=== PATIENT | female | born 1990 | race African-American/Black ===

== ENCOUNTER 2016-07-22 12:42 | Emergency (ER) | payer OTHER ==
[2016-07-22] MEDS ORDERED: SODIUM CHLORIDE 0.9% 1,000 ML IV STA (14:09)
--- NOTE | 2016-07-22 14:13 | ED ---
Abdominal Pain HPI - General Chief Complaint: Abdominal Pain Stated Complaint: Abd.pain Time Seen by Provider: 07/22/16 14:00 Source: patient, RN notes reviewed Mode of arrival: ambulatory Limitations: no limitations - History of Present Illness Initial Comments: 25-year-old female presents to the emergency department with a chief complaint of lower abdominal cramping. Patient states that she has had the symptoms for the past week or so. Patient states that she took a home test that was negative. Patient states she is about a week and half late for her.. Patient states she was concerned due to her symptoms so she thought that she should be evaluated. Patient denies any recent fever, chills, shortness of breath, chest pain, back pain, nausea vomiting, numbness or tingling, dysuria or hematuria, constipation or diarrhea, headaches or visual changes, or any other current symptoms. - Related Data Home Medications Medication Instructions Recorded Confirmed amLODIPine [Norvasc] 5 mg PO DAILY 10/21/15 07/22/16 Allergies Allergy/AdvReac Type Severity Reaction Status Date / Time No Known Allergies Allergy Verified 07/22/16 14:34 Review of Systems ROS Statement: Those systems with pertinent positive or pertinent negative responses have been documented in the HPI. ROS Other: All systems not noted in ROS Statement are negative. Past Medical History Past Medical History: No Reported History Additional Past Medical History / Comment(s): legally blind, retinal detachment at , History of Any Multi-Drug Resistant Organisms: None Reported Additional Past Surgical History / Comment(s): retinal sx., eye surgeries Past Psychological History: Anxiety Smoking Status: Current every day smoker Past Alcohol Use History: Occasional Past Drug Use History: None Reported General Exam - General Exam Comments Initial Comments: General: The patient is awake and alert, in no distress, and does not appear acutely ill. Eye: Pupils are equal, round and reactive to light. Ears, nose, mouth and throat: There are moist mucous membranes. Neck: The neck is supple, there is no tenderness. Cardiovascular: There is a regular rate and rhythm. No murmur, rub or gallop is appreciated. Respiratory: Lungs are clear to auscultation, respirations are non-labored, breath sounds are equal. No wheezes, stridor, rales, or rhonchi. Gastrointestinal: Soft, non-distended, mild bilateral lower quadrant tenderness abdomen without masses or organomegaly noted. There is no rebound or guarding present. No CVA tenderness. Bowel sounds are unremarkable. Back: There is no tenderness to palpation in the midline. There is no obvious deformity. No rashes noted. Musculoskeletal: Normal ROM, no tenderness, There is no pedal edema. There is no calf tenderness or swelling. Sensation intact. Pulses equal bilaterally 2+. Neurological: CN II-XII intact, There are no obvious motor or sensory deficits. Coordination appears grossly intact. Speech is normal. Skin: Skin is warm and dry and no rashes or lesions are noted. Psychiatric: Cooperative, appropriate mood & affect, normal judgment. Limitations: no limitations Course Vital Signs 07/22/16 07/22/16 07/22/16 13:01 14:10 15:09 Temperature 97.9 F 97.8 F Pulse Rate 91 68 90 Respiratory 20 16 16 Rate Blood Pressure 199/113 131/78 154/83 O2 Sat by Pulse 100 97 97 Oximetry 07/22/16 15:26 Temperature 97.6 F Pulse Rate 74 Respiratory 16 Rate Blood Pressure 151/78 O2 Sat by Pulse 99 Oximetry Medical Decision Making - Medical Decision Making 25-year-old female presents emergency department with chief complaint of pelvic cramping. At this time patient's level is negative for blood work is otherwise negative. Urine is negative. We discussed patient's pain is most likely due to abnormal menstruation. We did discuss follow-up with [facility] COUNSELOR and return parameters. Patient states that she is told that she'll follow-up with her JUVENILE COUNSELOR for further testing. All questions have been answered. She will be discharged. - Lab Data Result diagrams: 07/22/16 14:50 07/22/16 14:00 Lab Results 07/22/16 07/22/16 07/22/16 Range/Units 14:00 14:00 14:50 WBC 6.9 (3.8-10.6) k/uL RBC 4.37 (3.80-5.40) m/uL Hgb 12.2 (11.4-16.0) gm/dL Hct 36.3 (34.0-46.0) % MCV 83.1 (80.0-100.0) fL MCH 27.9 (25.0-35.0) pg MCHC 33.5 (31.0-37.0) g/dL RDW 13.6 (11.5-15.5) % Plt Count 262 (150-450) k/uL Neutrophils % 44 % Lymphocytes % 46 % Monocytes % 4 % Eosinophils % 3 % Basophils % 1 % Neutrophils # 3.0 (1.3-7.7) k/uL Lymphocytes # 3.1 (1.0-4.8) k/uL Monocytes # 0.3 (0-1.0) k/uL Eosinophils # 0.2 (0-0.7) k/uL Basophils # 0.1 (0-0.2) k/uL Sodium 139 (137-145) mmol/L Potassium 4.5 (3.5-5.1) mmol/L Chloride 107 (98-107) mmol/L Carbon Dioxide 22 (22-30) mmol/L Anion Gap 10 mmol/L BUN 12 (7-17) mg/dL Creatinine 0.90 (0.52-1.04) mg/dL Est GFR (MDRD) Af Amer >60 (>60 ml/min/1.73 sqM) Est GFR (MDRD) Non-Af >60 (>60 ml/min/1.73 sqM) Glucose 92 (74-99) mg/dL Calcium 9.0 (8.4-10.2) mg/dL Total Bilirubin 1.0 (0.2-1.3) mg/dL AST 37 H (14-36) U/L ALT 22 (9-52) U/L Alkaline Phosphatase 84 (38-126) U/L Total Protein 8.7 H (6.3-8.2) g/dL Albumin 4.6 (3.5-5.0) g/dL HCG, Quant <2.4 mIU/mL Urine Color Light Yellow Urine Appearance Clear (Clear) Urine pH 7.5 (5.0-8.0) Ur Specific [place] 1.014 (1.001-1.035) Urine Protein Negative (Negative) Urine Glucose (UA) Negative (Negative) Urine Ketones Negative (Negative) Urine Blood Negative (Negative) Urine Nitrite Negative (Negative) Urine Bilirubin Negative (Negative) Urine Urobilinogen <2.0 (<2.0) mg/dL Ur Leukocyte Esterase Negative (Negative) Disposition Clinical Impression: Pelvic cramping Disposition: HOME SELF-CARE Condition: Stable Instructions: Dysmenorrhea (ED) Additional Instructions: Please use medication as discussed. Please follow up with family doctor if symptoms have not improved over the next two days. Please return to the emergency room if your symptoms increase or worsen or for any other concerns. Referrals: Gasper Swan MD [Primary Care Provider] - 1-2 days Time of Disposition: 15:29
[2016-07-22 14:14] VITALS: RESP 16
[2016-07-22 14:37] LABS: ALT 22 U/L (9-52); AST 37 U/L (14-36); Alkaline Phosphatase 84 U/L (38-126); Anion Gap 10 mmol/L; Blood Urea Nitrogen 12 mg/dL (7-17); Carbon Dioxide 22 mmol/L (22-30); Chloride 107 mmol/L (98-107); Glucose 92 mg/dL (74-99); Non-African American GFR(MDRD) >60 (>60 ml/min/1.73 sqM); Potassium 4.5 mmol/L (3.5-5.1); Sodium 139 mmol/L (137-145); Total Protein 8.7 g/dL (6.3-8.2)
[2016-07-22 14:39] LABS: Appearance,Urine Clear (Clear); Bilirubin,Urine Negative (Negative); Glucose,Urine (UA) Negative (Negative); Ketones,Urine Negative (Negative); Leukocyte Esterase,Urine Negative (Negative); Nitrite,Urine Negative (Negative); PH, Urine 7.5 (5.0-8.0); Protein,Urine Negative (Negative); Specific Gravity,Urine 1.014 (1.001-1.035); UA Billing (MACRO vs. MICRO) CHEM; Urobilinogen,Urine <2.0 mg/dL (<2.0)
[2016-07-22 14:53] LABS: HCG,Quantitative Serum <2.4 mIU/mL
[2016-07-22 15:12] LABS: Basophils # (A) 0.1 k/uL (0-0.2); Basophils % (A) 1 %; CH 27.2; CHCM 32.9; Eosinophils # (A) 0.2 k/uL (0-0.7); Eosinophils % (A) 3 %; HCT 36.3 % (34.0-46.0); HGB 12.2 gm/dL (11.4-16.0); Luc # (Auto) 0.17; Luc % (Auto) 2; Lymphocytes # (A) 3.1 k/uL (1.0-4.8); Lymphocytes % (A) 46 %; MCH 27.9 pg (25.0-35.0); MCHC 33.5 g/dL (31.0-37.0); MCV 83.1 fL (80.0-100.0); Mean Platelet Volume 7.7; Monocytes # (A) 0.3 k/uL (0-1.0); Monocytes % (A) 4 %; Neutrophils % (A) 44 %; RBC 4.37 m/uL (3.80-5.40); RDW 13.6 % (11.5-15.5); WBC 6.9 k/uL (3.8-10.6); WBC (Perox) 6.88
[2016-07-22 15:27] VITALS: BP 151/78; PULSE 74; TEMP 97.6
== END 2016-07-22 15:39 | disposition home or self-care (01) ==
LOC: EC 12:42
DX: R10.2 Pelvic and perineal pain (principal); Z32.02 Encounter for pregnancy test, result negative; F17.200 Nicotine dependence, unspecified, uncomplicated; Z79.899 Other long term (current) drug therapy
CPT/HCPCS: 36415; 80053; 81003; 84702; 85025; 96360; 99284

== ENCOUNTER 2016-12-06 20:59 | Emergency (ER) | payer OTHER ==
[2016-12-06 21:31] VITALS: RESP 18
--- NOTE | 2016-12-06 22:11 | ED ---
Female Urogenital HPI - General Chief complaint: Urogenital Stated complaint: poss UTI Time Seen by Provider: 12/06/16 22:01 Source: patient, RN notes reviewed, old records reviewed Mode of arrival: ambulatory Limitations: no limitations - History of Present Illness Initial comments: This is a 25-year-old female chief complaint of 2 days of dysuria and polyuria. Patient ports last menstrual cycle was on Wednesday. Patient states that she has had no fever or chills. She reports that every time she urinates is very painful. Patient denies any back pain or abdominal pain. She reports that she is not concern for sexually transmitted infections. She reports that she's had a slight increase of vaginal discharge. Patient denies any recent fever, chills, shortness of breath, chest pain, back pain, abdominal pain, nausea vomiting, numbness or tingling, dysuria or hematuria, constipation or diarrhea, headaches or visual changes, or any other current symptoms - Related Data Home Medications Medication Instructions Recorded Confirmed amLODIPine [Norvasc] 5 mg PO DAILY 10/21/15 12/06/16 Dorzolamide HCl [Trusopt 2%] 1 drop BOTH EYES 12/06/16 Allergies Allergy/AdvReac Type Severity Reaction Status Date / Time No Known Allergies Allergy Verified 07/22/16 14:34 Review of Systems ROS Statement: Those systems with pertinent positive or pertinent negative responses have been documented in the HPI. ROS Other: All systems not noted in ROS Statement are negative. Past Medical History Past Medical History: Hypertension Additional Past Medical History / Comment(s): legally blind, retinal detachment at , History of Any Multi-Drug Resistant Organisms: None Reported Additional Past Surgical History / Comment(s): retinal sx., eye surgeries Past Psychological History: Anxiety Smoking Status: Current some day smoker Past Alcohol Use History: Occasional Past Drug Use History: None Reported General Exam - General Exam Comments Initial Comments: 25-year-old female. No acute distress. Limitations: no limitations General appearance: alert, in no apparent distress Head exam: Present: atraumatic, normocephalic, normal inspection Eye exam: Present: normal appearance, PERRL, EOMI, other (Right eye has history of surgery.). Absent: scleral icterus, conjunctival injection, periorbital swelling ENT exam: Present: normal exam, mucous membranes moist Neck exam: Present: normal inspection. Absent: tenderness, meningismus, lymphadenopathy Respiratory exam: Present: normal lung sounds bilaterally. Absent: respiratory distress, wheezes, rales, rhonchi, stridor Cardiovascular Exam: Present: regular rate, normal rhythm, normal heart sounds. Absent: systolic murmur, diastolic murmur, rubs, gallop, clicks GI/Abdominal exam: Present: soft, normal bowel sounds. Absent: distended, tenderness, guarding, rebound, rigid External exam: Present: normal external exam Speculum exam: Present: vaginal discharge (significant vaginal discharge). Absent: normal speculum exam, cervical discharge, vaginal bleeding, foreign body Extremities exam: Present: normal inspection, full ROM, normal capillary refill. Absent: tenderness, pedal edema, joint swelling, calf tenderness Back exam: Present: normal inspection Neurological exam: Present: alert, oriented X3, CN II-XII intact Psychiatric exam: Present: normal affect, normal mood Skin exam: Present: warm, dry, intact, normal color. Absent: rash Course Vital Signs 12/06/16 21:28 Temperature 99.3 F Pulse Rate 94 Respiratory 18 Rate Blood Pressure 220/117 O2 Sat by Pulse 100 Oximetry Medical Decision Making - Medical Decision Making 25-year-old female presents emergency Department chief complaint of dysuria for the past few days. She recently got over her menstrual cycle at the end of this week. Patient reports it's burning whenever she urinates. Patient urinalysis was performed, little signs of infection. Pelvic exam completed she does have significant amount of discharge. Patient be treated for chlamydia and gonorrhea with Rocephin and azithromycin. Trichomonas test currently pending. Trichomonas test is negative. Patient advised to follow with the health department and discussed that we will call her in 2 days if any of her cultures are positive. Patient advised to avoid intercourse for the next 2 weeks. Patient agrees treatment plan will comply. Return parameters were discussed. - Lab Data Lab Results 12/06/16 12/06/16 12/06/16 Range/Units 22:16 22:16 23:15 Urine Color Yellow Urine Appearance Clear (Clear) Urine pH 5.5 (5.0-8.0) Ur Specific [place] 1.015 (1.001-1.035) Urine Protein Trace H (Negative) Urine Glucose (UA) Negative (Negative) Urine Ketones Negative (Negative) Urine Blood Negative (Negative) Urine Nitrite Negative (Negative) Urine Bilirubin Negative (Negative) Urine Urobilinogen <2.0 (<2.0) mg/dL Ur Leukocyte Esterase Trace H (Negative) Urine RBC 1 (0-5) /hpf Urine WBC 3 (0-5) /hpf Ur Squamous Epith Cells <1 (0-4) /hpf Urine Mucus Rare H (None) /hpf Urine HCG, Qual Not Detected (Not Detectd) Trichomonas Ag (Rapid) Negative (Negative) Disposition Clinical Impression: Vaginal discharge Disposition: HOME SELF-CARE Condition: Good Instructions: Vaginal Discharge (ED), Sexually Transmitted Diseases (ED) Additional Instructions: Patient advised to follow-up with primary care provider in health department. He'll be called in 2 days if he results are positive. Return to the emergency department if any alarming signs or symptoms occur. Referrals: Gasper Swan MD [Primary Care Provider] - 1-2 days Time of Disposition: 23:37
[2016-12-06 22:31] LABS: Appearance,Urine Clear (Clear); Bilirubin,Urine Negative (Negative); Glucose,Urine (UA) Negative (Negative); Ketones,Urine Negative (Negative); Leukocyte Esterase,Urine Trace (Negative); Mucus,Urine Rare /hpf; Nitrite,Urine Negative (Negative); PH, Urine 5.5 (5.0-8.0); Particle Count 2883; Protein,Urine Trace (Negative); RBC,Urine 1 /hpf (0-5); Specific Gravity,Urine 1.015 (1.001-1.035); Squamous Epithelial Cell,Urine <1 /hpf (0-4); UA Billing (MACRO vs. MICRO) MICRO; Urobilinogen,Urine <2.0 mg/dL (<2.0); WBC,Urine 3 /hpf (0-5)
[2016-12-06] MEDS ORDERED: cefTRIAXone 250 MG VIAL IM STA (23:14)
[2016-12-06] MEDS ORDERED: AZITHROMYCIN 500 MG TAB PO STA (23:15)
[2016-12-06] MEDS ORDERED: cloNIDine HCL 0.2 MG TAB PO STA (23:35)
[2016-12-07 00:11] VITALS: BP 190/121; PULSE 90; TEMP 98.7
== END 2016-12-07 00:10 | disposition home or self-care (01) ==
LOC: EC 20:59
DX: N89.8 Other specified noninflammatory disorders of vagina (principal); R30.0 Dysuria; R35.8 Other polyuria; I10 Essential (primary) hypertension; F17.200 Nicotine dependence, unspecified, uncomplicated; Z79.899 Other long term (current) drug therapy
CPT/HCPCS: 99284 ×2; 96372 ×2; 87591; 87491; 81001; 81025; 87808; 87070; 87086; J0696; 87205

== ENCOUNTER 2017-06-26 15:29 | Emergency (ER) | payer MEDICARE, OTHER ==
[2017-06-26 15:48] VITALS: BP 168/82; PULSE 103; RESP 20; TEMP 100
--- NOTE | 2017-06-26 16:21 | XR ---
EXAMINATION TYPE: XR wrist complete 4 views RT, XR hand complete 3 views RT DATE OF EXAM: 06/26/2017 COMPARISON: NONE HISTORY: 26-year-old female with dominant radial sided wrist pain FINDINGS: Right wrist: Mild soft tissue swelling about the wrist. No acute fracture, subluxation, or dislocation is seen. Me tacarpal compartment appears intact. Right hand: Metallic density nail art is present. Mild soft tissue swelling. No acute fracture, subluxation, or dislocation seen IMPRESSION: Right wrist and hand without acute osseous abnormality seen. Mild soft tissue swelling is noted.
--- NOTE | 2017-06-26 16:37 | ED ---
General Adult HPI - General Chief complaint: Extremity Injury, Upper Stated complaint: Arm pain Time Seen by Provider: 06/26/17 15:58 Source: patient, RN notes reviewed Mode of arrival: ambulatory Limitations: no limitations - History of Present Illness Initial comments: 26-year-old female presents to the emergency department for a chief complaint of right hand and wrist pain x 2 weeks. Patient denies any injuries. 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 She states she has also been typing and writing a lot because of the end of the term. She is right handed. Patient is concerned for a "hairline fracture." Patient states she has pain in her the right hand only in the first three digits. Patient states she was seen at [facility] and diagnosed with tendinitis. Patient has been wearing a cockup splint and using Motrin for the past few days. She has not been doing this consistently. Patient would like x- rays to make sure she does not have a hairline fracture. Patient has no other complaints at this time. Patient denies any shortness of breath, chest pain, headaches, abdominal pain, cough, sore throat, congestion, ear pain, urinary symptoms, nausea or vomiting. - Related Data Home Medications Medication Instructions Recorded Confirmed amLODIPine [Norvasc] 5 mg PO DAILY 10/21/15 12/06/16 Dorzolamide HCl [Trusopt 2%] 1 drop BOTH EYES 12/06/16 Previous Rx's Medication Instructions Recorded Ibuprofen [Motrin] 600 mg PO Q8HR PRN #20 tab 06/26/17 Allergies Allergy/AdvReac Type Severity Reaction Status Date / Time No Known Allergies Allergy Verified 06/26/17 15:44 Review of Systems ROS Statement: Those systems with pertinent positive or pertinent negative responses have been documented in the HPI. ROS Other: All systems not noted in ROS Statement are negative. Past Medical History Past Medical History: Hypertension Additional Past Medical History / Comment(s): legally blind, retinal detachment at , History of Any Multi-Drug Resistant Organisms: None Reported Additional Past Surgical History / Comment(s): retinal sx., eye surgeries Past Psychological History: Anxiety Smoking Status: Current some day smoker Past Alcohol Use History: Occasional Past Drug Use History: None Reported General Exam Limitations: no limitations General appearance: alert, in no apparent distress Neck exam: Present: normal inspection, full ROM. Absent: tenderness, meningismus, lymphadenopathy Respiratory exam: Present: normal lung sounds bilaterally. Absent: respiratory distress, wheezes, rales, rhonchi, stridor Cardiovascular Exam: Present: regular rate, normal rhythm, normal heart sounds. Absent: systolic murmur, diastolic murmur, rubs, gallop, clicks Extremities exam: Present: full ROM (Full range of motion of the right hand wrist and digits. No pain with passive extension of the fingers.), tenderness ( Mild tenderness to the dorsal and ventral right wrist as well as the dorsal and ventral first three digits. No tenderness to the scaphoid area.), normal capillary refill (Refill less than 2 seconds in RUE. Radial pulse 2+ in RUE.), other (Negative Lou test. No redness or swelling of the right hand. No signs of infection or abscesses noted on the right hand. No [place] signs. No fingers held in flexion in the right hand. No tenderness to palpation of the flexor tendons. Positive Phalen test, Negative lou.). Absent: joint swelling (No swelling of the wrist.) Course Vital Signs 06/26/17 15:44 Temperature 100 F H Pulse Rate 103 H Respiratory 20 Rate Blood Pressure 168/82 O2 Sat by Pulse 100 Oximetry Medical Decision Making - Medical Decision Making 26-year-old female presents to the emergency department for a chief complaint of right wrist and hand pain 1.5 weeks. 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 Patient was seen at [facility] about 1 week ago and was diagnosed with tendinitis. X-rays were not obtained at that time and patient was concerned for hairline fracture. Patient complains of pain only in the first 3 digits of the right hand. Vitals show a low-grade temperature of 100.0, pulse 103, respirations 20, blood pressure 168/82, pulse ox 100. Patient states she had a cold for the past couple days that has been improving which is likely the cause of her low-grade temp. On exam patient has mild tenderness in the first 3 metacarpals of the right hand and mild pain with ROM. No scaphoid tenderness. No redness or swelling noted. No abscesses or signs of infection noted. the right hand is not warmer than the other. No pain with extension of the fingers, no fingers held in flexion, no tenderness of flexor tendons. Neurovascular intact with full range of motion. Positive Phalen test. Right wrist and hand x-rays show no acute osseous abnormality. Patient likely has carpal tunnel and overuse syndrome of the right hand as she is a student in [employer] and been using her right hand often to type and write. Patient already has a cock up splint from [employer]. She is to use that at night. She is to take Motrin 3 times a day for inflammation. Patient was educated that she is to follow up with orthopedics in one to 2 days. Contact info was given. Patient is aware she is also to follow up with her primary care provider in 1-2 days as well. She is aware she must return to the emergency Department if she has any worsening symptoms. Disposition Clinical Impression: Carpal tunnel syndrome of right wrist, Overuse syndrome of right hand Disposition: HOME SELF-CARE Condition: Good Instructions: Paresthesia (ED) Additional Instructions: Please use splint nightly. Please take Motrin for pain. Follow up with primary care provider or orthopedics in one to two days. Return to the emergency department if you have any worsening symptoms. Prescriptions: Ibuprofen [Motrin] 600 mg PO Q8HR PRN #20 tab PRN Reason: Pain Is patient prescribed a controlled substance at d/c from ED?: No Referrals: Gasper Swan MD [Primary Care Provider] - 1-2 days Kyleigh Watt DO [Doctor of Osteopathic Medicine] - 1-2 days Time of Disposition: 16:39
== END 2017-06-26 16:44 | disposition home or self-care (01) ==
LOC: EC 15:29
DX: G56.01 Carpal tunnel syndrome, right upper limb (principal); M70.841 Other soft tissue disorders related to use, overuse and pressure, right hand; H54.8 Legal blindness, as defined in USA; I10 Essential (primary) hypertension; F17.200 Nicotine dependence, unspecified, uncomplicated; Z79.899 Other long term (current) drug therapy; Y93.89 Activity, other specified
CPT/HCPCS: 99283

== ENCOUNTER 2018-06-04 13:36 | Emergency (ER) | payer MEDICARE, OTHER ==
[2018-06-04 13:43] VITALS: RESP 18
--- NOTE | 2018-06-04 14:25 | ED ---
General Adult HPI - General Chief complaint: Recheck/Abnormal Lab/Rx Stated complaint: Absent Period Time Seen by Provider: 06/04/18 13:49 Source: patient, RN notes reviewed Mode of arrival: ambulatory Limitations: no limitations - History of Present Illness Initial comments: 27-year-old female presents emergency Department chief complaint of leg menstr ual cycle. Patient states she's been waking up with abdominal cramping. Patient states that she is over 2 weeks late. She did take a test which she believes was negative. She has no vaginal pain or vaginal discharge. Patient did she is always regular up to this point no control. Patient has had thyroid checked in the past. Patient does admit that she's had increased stress which may be contrary returning to her symptoms. Patient denies fever, chills, change in bowel habits. Patient does take amlodipine for hypertension. - Related Data Home Medications Medication Instructions Recorded Confirmed amLODIPine [Norvasc] 5 mg PO DAILY 10/21/15 12/06/16 Dorzolamide HCl [Trusopt 2%] 1 drop BOTH EYES 12/06/16 Previous Rx's Medication Instructions Recorded Ibuprofen [Motrin] 600 mg PO Q8HR PRN #20 tab 06/26/17 Allergies Allergy/AdvReac Type Severity Reaction Status Date / Time No Known Allergies Allergy Verified 06/04/18 13:43 Review of Systems ROS Statement: Those systems with pertinent positive or pertinent negative responses have been documented in the HPI. ROS Other: All systems not noted in ROS Statement are negative. Past Medical History Past Medical History: Hypertension Additional Past Medical History / Comment(s): legally blind, retinal detachment at , History of Any Multi-Drug Resistant Organisms: None Reported Additional Past Surgical History / Comment(s): retinal sx., eye surgeries Past Psychological History: Anxiety Smoking Status: Current some day smoker Past Alcohol Use History: Occasional Past Drug Use History: None Reported General Exam Limitations: no limitations General appearance: alert, in no apparent distress Head exam: Present: atraumatic, normocephalic, normal inspection Respiratory exam: Present: normal lung sounds bilaterally. Absent: respiratory distress, wheezes, rales, rhonchi, stridor Cardiovascular Exam: Present: regular rate, normal rhythm, normal heart sounds. Absent: systolic murmur, diastolic murmur, rubs, gallop, clicks GI/Abdominal exam: Present: soft, normal bowel sounds. Absent: distended, tenderness, guarding, rebound, rigid Back exam: Absent: CVA tenderness (R), CVA tenderness (L) Neurological exam: Present: alert, oriented X3, CN II-XII intact Skin exam: Present: warm, dry, intact, normal color. Absent: rash Course Vital Signs 06/04/18 13:41 Temperature 99.0 F Pulse Rate 90 Respiratory 18 Rate Blood Pressure 146/90 O2 Sat by Pulse 100 Oximetry Medical Decision Making - Medical Decision Making 27 female presented emergency Department for missed menstrual cycle. HCG is negative. Ultrasound shows hemorrhagic cyst on the right. Otherwise no acute findings. Patient will follow-up with primary care physician, DIVISION ORDER ANALYST. Return parameters were discussed. - Lab Data Lab Results 06/04/18 06/04/18 Range/Units 14:05 14:05 Urine Color Yellow Urine Appearance Clear (Clear) Urine pH 6.5 (5.0-8.0) Ur Specific [place] 1.014 (1.001-1.035) Urine Protein Negative (Negative) Urine Glucose (UA) Negative (Negative) Urine Ketones Negative (Negative) Urine Blood Negative (Negative) Urine Nitrite Negative (Negative) Urine Bilirubin Negative (Negative) Urine Urobilinogen <2.0 (<2.0) mg/dL Ur Leukocyte Esterase Negative (Negative) Urine HCG, Qual Not Detected (Not Detectd) Disposition Clinical Impression: Irregular menstrual cycle Disposition: HOME SELF-CARE Condition: Stable Instructions (If sedation given, give patient instructions): Dysfunctional Uterine Bleeding (ED) Additional Instructions: Please return to the Emergency Department if symptoms worsen or any other concerns. Is patient prescribed a controlled substance at d/c from ED?: No Referrals: Gasper Swan MD [Primary Care Provider] - 1-2 days Time of Disposition: 14:53
[2018-06-04 14:44] LABS: Appearance,Urine Clear (Clear); Bilirubin,Urine Negative (Negative); Blood,Urine Negative (Negative); Color,Urine Yellow; Glucose,Urine (UA) Negative (Negative); Ketones,Urine Negative (Negative); Leukocyte Esterase,Urine Negative (Negative); Nitrite,Urine Negative (Negative); PH, Urine 6.5 (5.0-8.0); Protein,Urine Negative (Negative); Specific Gravity,Urine 1.014 (1.001-1.035); Urobilinogen,Urine <2.0 mg/dL (<2.0)
--- NOTE | 2018-06-04 14:45 | US ---
EXAMINATION TYPE: US transvaginal DATE OF EXAM: 06/04/2018 COMPARISON: US CLINICAL HISTORY: Pain. Pt states late menses, pt states negative home tests TECHNIQUE: Transvaginal (TV). Transvaginal sonographic images of the pelvis were acquired. Date of LMP: 04/12/2018 EXAM MEASUREMENTS: Uterus: 7.8 x 4.3 x 4.5 cm Endometrial Stripe: 0.9 cm Right Ovary: 4.6 x 3.0 x 2.3 cm Left Ovary: 3.5 x 2.4 x 3.0 cm 1. Uterus: Anteverted wnl 2. Endometrium: wnl 3. Right Ovary: Possible hemorrhagic cyst= 2.2 x 2.4 x 1.8 cm 4. Left Ovary: wnl, dominant follicle= 1.5 cm Spectral, color and waveform doppler imaging shows good arterial and venous flow within the ovaries ; there is no evidence for ovarian torsion. 5. Bilateral Adnexa: wnl 6. Posterior cul-de-sac: Small amount of free fluid IMPRESSION: 1. Complex cyst right ovary. Follow-up is recommended. Hemorrhagic cyst is within the differential. 2. More simple appearing left ovarian cyst measuring 1.5 cm. 3. Small amount of free fluid is within the pelvis. This may be slightly greater than expected for ph ysiologic fluid
[2018-06-04 15:04] VITALS: BP 138/87; PULSE 87; TEMP 98
[2018-06-06 14:55] LABS: N. gonorrhoeae,PCR Negative (Neg,Equiv); Neisseria Source Urine
[2018-06-06 14:58] LABS: C. trachomatis,PCR Negative (Neg,Equiv); Chlamydia trachomatis Source Urine
== END 2018-06-04 15:01 | disposition home or self-care (01) ==
LOC: EC 13:36
DX: N92.6 Irregular menstruation, unspecified (principal); I10 Essential (primary) hypertension; F17.200 Nicotine dependence, unspecified, uncomplicated; Z32.02 Encounter for pregnancy test, result negative
CPT/HCPCS: 76830; 81003; 81025; 87491; 87591; 93975; 99283

== ENCOUNTER → 2018-07-18 | Outpatient (CLI) | payer MEDICARE, OTHER ==
--- NOTE | 2018-07-19 07:40 | US ---
EXAMINATION TYPE: US transvaginal DATE OF EXAM: 07/18/2018 COMPARISON: US CLINICAL HISTORY: N83.201 Unspecified ovarian cyst, right side. TECHNIQUE: Transvaginal (TV). Date of LMP: 07/11/2018 EXAM MEASUREMENTS: Uterus: 7.4 x 4.0 x 4.6 cm Endometrial Stripe: 0.5 cm Right Ovary: 3.7 x 2.5 x 2.7 cm Left Ovary: 3.1 x 3.7 x 1.8 cm 1. Uterus: Anteverted wnl 2. Endometrium: wnl 3. Right Ovary: wnl 4. Left Ovary: wnl 5. Bilateral Adnexa: wnl 6. Posterior cul-de-sac: Trace amount of free fluid adjacent to left ovary. IMPRESSION: The previously seen complex ovarian cyst on the right has resolved in the interim and the refore is likely related to an involuting hemorrhagic cyst. Physiologic follicles are seen bilaterall y with a trace amount of free fluid, likely physiologic as well.
== END | disposition home or self-care (01) ==
LOC: RADUSWWP 16:08
PROVIDERS: ATTEND Obstetrics & Gynecology
DX: N83.201 Unspecified ovarian cyst, right side (principal)
CPT/HCPCS: 76830

== ENCOUNTER → 2020-09-04 | Outpatient (CLI) | payer MEDICARE, OTHER | END | disposition home or self-care (01) | CPT/HCPCS: 99203 ==

== ENCOUNTER 2020-11-11 13:35 | Emergency (ER) | payer MEDICARE, OTHER ==
[2020-11-11 13:43] VITALS: PULSE 94; RESP 18; TEMP 97.9
--- NOTE | 2020-11-11 15:32 | ED ---
ENT HPI - General Chief complaint: ENT Stated complaint: L ear pain Time Seen by Provider: 11/11/20 14:56 Source: patient, family Mode of arrival: ambulatory Limitations: no limitations - History of Present Illness Initial comments: Patient is a 29-year-old female presenting to emergency Department with complaints of fluid in her left ear. She states her sister washed her hair yesterday and believes she got some water in her left ear. She states is very irritating feeling she is also denying with a sinus infection and states that she is making matters worse. She denies any dizziness or lightheadedness, no headache, no fevers or chills. She has no further complaints. - Related Data Home Medications Medication Instructions Recorded Confirmed amLODIPine [Norvasc] 5 mg PO DAILY 10/21/15 09/04/20 Dorzolamide HCl [Trusopt 2%] 1 drop BOTH EYES TID 12/06/16 09/04/20 Acetaminophen [Tylenol Extra 500 mg PO Q6H PRN 09/04/20 09/04/20 Strength] Allergies Allergy/AdvReac Type Severity Reaction Status Date / Time No Known Allergies Allergy Verified 11/11/20 13:40 Review of Systems ROS Statement: Those systems with pertinent positive or pertinent negative responses have been documented in the HPI. ROS Other: All systems not noted in ROS Statement are negative. Past Medical History Past Medical History: Hypertension Additional Past Medical History / Comment(s): legally blind, retinal detachment at 15 years old. History of Any Multi-Drug Resistant Organisms: None Reported Additional Past Surgical History / Comment(s): retinal sx., eye surgeries. cataract sx left eye 05/06/2020. Past Anesthesia/Blood Transfusion Reactions: No Reported Reaction Past Psychological History: Anxiety Smoking Status: Former smoker Past Alcohol Use History: Occasional Past Drug Use History: None Reported General Exam - General Exam Comments Initial Comments: GENERAL: Patient is well-developed and well-nourished. Patient is nontoxic and in no acute distress. HEAD: Atraumatic, normocephalic. EYES: Pupils equal round and reactive to light, extraocular movements intact, sclera anicteric, conjunctiva are normal. Eyelids were unremarkable. ENT: Right TM is within normal limits, left TM has a cerumen impaction, after impact ion was cleared, TM looks normal, no signs of infection., nares patent, oropharynx clear without exudates. Moist mucous membranes. NECK: Normal range of motion, supple without lymphadenopathy or JVD. LUNGS: Unlabored respirations. Breath sounds clear to auscultation bilaterally and equal. No wheezes rales or rhonchi. HEART: Regular rate and rhythm without murmurs, rubs or gallops. MUSCULOSKELETAL: Normal extremities with adequate strength and normal range of motion, no pitting or edema. No clubbing or cyanosis. NEUROLOGICAL: Patient is alert and oriented x 3. SKIN: Warm, Dry, normal turgor, no rashes or lesions noted. Limitations: no limitations Course Vital Signs 11/11/20 11/11/20 13:40 14:48 Temperature 97.9 F Pulse Rate 94 Respiratory 18 Rate Blood Pressure 190/135 224/113 O2 Sat by Pulse 98 Oximetry Medical Decision Making - Medical Decision Making Patient is a 29-year-old female here with fluid in her left ear. On exam, she had a small cerumen impaction, after ear was cleaned, TM is intact, no other acute findings. Patient's ear was irrigated by the nurse, she reports cerumen removal, patient feels improvement. She is stable for discharge. She'll follow up with family doctor as needed. Case discussed with Dr. Caldwell. Disposition Clinical Impression: Left ear impacted cerumen Disposition: HOME SELF-CARE Condition: Stable Instructions (If sedation given, give patient instructions): Cerumen Impaction (ED) Additional Instructions: Please return to the Emergency Department if symptoms worsen or any other concerns. Do not use Q-tips in the ears. Is patient prescribed a controlled substance at d/c from ED?: No Referrals: Gasper Swan MD [Primary Care Provider] - 1-2 days Time of Disposition: 15:32
[2020-11-11 15:40] VITALS: BP 198/98
== END 2020-11-11 15:40 | disposition home or self-care (01) ==
LOC: EC 13:35
DX: H61.22 Impacted cerumen, left ear (principal); I10 Essential (primary) hypertension; Z87.891 Personal history of nicotine dependence; Z79.899 Other long term (current) drug therapy
CPT/HCPCS: 99282

== ENCOUNTER → 2020-11-11 | Outpatient (CLI) | payer MEDICARE, OTHER ==
[2020-11-11 10:27] LABS: Partial Thromboplastin Time 24.3 sec (22.0-30.0); Prothrombin Time 10.4 sec (9.0-12.0)
[2020-11-11 15:15] LABS: HCT 37.5 % (37.2-46.3); HGB 11.5 g/dL (12.0-15.0); MCH 24.6 pg (27.0-32.0); MCHC 30.7 g/dL (32.0-37.0); MCV 80.3 fL (80.0-97.0); Mean Platelet Volume 11.3 fL (9.5-12.2); Platelet Count 310 X 10*3/uL (140-440); RBC 4.67 X 10*6/uL (4.10-5.20); RDW 14.7 % (11.5-14.5); WBC 6.64 X 10*3/uL (4.50-10.00)
[2020-11-11 17:04] LABS: African American GFR (CKD) 79.7 (60.0-200.0); Albumin 4.5 g/dL (3.80-4.90); Albumin/Globulin Ratio 1.32 (1.60-3.17); Anion Gap 9.3 mmol/L (4.00-12.00); BUN/Creat Ratio 9.09 Ratio (12.00-20.00); Calcium 9.3 mg/dL (8.7-10.3); Carbon Dioxide 27.7 mmol/L (21.6-31.8); Globulin 3.4 g/dL (1.6-3.3); Non-African American GFR(CKD) 68.8 (60.0-200.0); Phosphorus 3.9 mg/dL (2.4-5.1); Total Bilirubin 0.2 mg/dL (0.3-1.2); Total Protein 7.9 g/dL (6.2-8.2)
[2020-11-11 17:05] LABS: % Iron Saturation 7.83 (12.00-45.00); Chol/HDL Ratio 4.25; Magnesium 1.9 mg/dL (1.5-2.4)
[2020-11-11 17:15] LABS: Folate, Serum 8.9 ng/mL
[2020-11-11 18:09] LABS: Ferritin 12.6 ng/mL (10.0-291.0)
[2020-11-11 18:22] LABS: Hemoglobin A1C 6.3 % (4.0-6.0)
[2020-11-12 13:45] LABS: Zinc, Serum 70 ug/dL (60-130)
[2020-11-13 06:02] LABS: Vit B1(Thiamine) 39 ug/L (38-122)
[2020-11-13 06:13] LABS: Vitamin A 37 ug/dL (38-106)
[2020-11-13 16:36] LABS: Anabasine Urine <2.0 ng/mL (<2.0)
== END | disposition home or self-care (01) ==
LOC: LABWHC1 09:01
PROVIDERS: ATTEND Surgery Plastic and Reconstructive Surgery
DX: E89.1 Postprocedural hypoinsulinemia (principal); D50.8 Other iron deficiency anemias; E44.0 Moderate protein-calorie malnutrition; E55.9 Vitamin D deficiency, unspecified; K74.1 Hepatic sclerosis; N19 Unspecified kidney failure; K50.90 Crohn's disease, unspecified, without complications
CPT/HCPCS: 84255; 84134; 84425; 80061; 80053; 82607; 82728; 82525; 82746; 83540; 83550; 83735; 84100; 84443; 84590; 84630; 85027; 85610; 85730; 82306; 83970; 83036; 80307; 93005; 36415; G0482; 80323

== ENCOUNTER 2021-01-06 08:07 | Day surgery (SDC) | payer MEDICARE, OTHER ==
[2021-01-01 13:55] VITALS: BMI 54.9
[~2021-01-06 08:07] MED LIST: LACTATED RINGERS 1,000 ML IV SCH
[2021-01-06 08:56] VITALS: TEMP 98.4
--- NOTE | 2021-01-06 09:08 | P.GSHP ---
History of Present Illness H&P Date: 01/06/21 CHIEF COMPLAINT: GERD HISTORY OF PRESENT ILLNESS: The patient is a 30-year-old female who presents reports gastroesophageal reflux disease. Upper endoscopy was offered for further evaluation and management. PAST MEDICAL HISTORY: Please see list. PAST SURGICAL HISTORY: Please see list. MEDICATIONS: Please see list. ALLERGIES: Please see list. SOCIAL HISTORY: No illicit drug use FAMILY HISTORY: No reports of Crohn disease or ulcerative colitis. REVIEW OF ORGAN SYSTEMS: CONSTITUTIONAL: No reports of fevers or chills. GI: Denies any blood in stools or constipation. PHYSICAL EXAM: VITAL SIGNS: Stable GENERAL: Well-developed and pleasant in no acute distress. HEENT: No scleral icterus. Extraocular movements grossly intact. Moist buccal mucosa. NECK: Supple without lymphadenopathy. CHEST: Unlabored respirations. Equal bilateral excursions. CARDIOVASCULAR: Regular rate and rhythm. Distal 2+ pulses. ABDOMEN: Soft, nondistended. MUSCULOSKELETAL: No clubbing, cyanosis, or edema. ASSESSMENT: 1. Gastroesophageal reflux disease PLAN: 1. Recommend proceeding with an upper endoscopy Past Medical History Past Medical History: Blood Disorder, Hypertension Additional Past Medical History / Comment(s): legally blind, retinal detachment at 15 years old. ANEMIA History of Any Multi-Drug Resistant Organisms: None Reported Additional Past Surgical History / Comment(s): retinal sx., eye surgeries. cataract sx left eye 05/06/2020. Past Anesthesia/Blood Transfusion Reactions: No Reported Reaction Smoking Status: Former smoker Medications and Allergies Home Medications Medication Instructions Recorded Confirmed Type amLODIPine [Norvasc] 5 mg PO DAILY 10/21/15 01/06/21 History Dorzolamide HCl [Trusopt 2%] 1 drop BOTH EYES DAILY 12/06/16 01/06/21 History Acetaminophen [Tylenol Extra 500 mg PO Q6H PRN 09/04/20 01/06/21 History Strength] Calcium Citrate 1,500 mg PO DAILY 11/13/20 01/06/21 History Ergocalciferol [Vitamin D2 (1250 50,000 unit PO WEEKLY 11/13/20 01/06/21 History Mcg = 82151 Iu)] Vitamin A [Vitamin A (8,000 Units 10,000 unit PO DAILY 11/13/20 01/06/21 History = 2,400 MCG)] Allergies Allergy/AdvReac Type Severity Reaction Status Date / Time No Known Allergies Allergy Verified 01/06/21 08:53 Surgical - Exam Vital Signs Temp Pulse Resp BP Pulse Ox 98.4 F 98 16 197/115 99 01/06/21 08:52 01/06/21 08:52 01/06/21 08:52 01/06/21 08:52 01/06/21 08:52
[2021-01-06] MEDS ORDERED: IRINOTECAN ONE (09:16)
[2021-01-06] MEDS ORDERED: KETAMINE 10 MG/ML 20 ML VIAL ONE (09:16)
[2021-01-06] MEDS ORDERED: GLYCOPYRROLATE 0.2 MG/ML 2 ML VIAL ONE (09:16)
[2021-01-06] MEDS ORDERED: LIDOCAINE 1% INJ 10MG/ML (20 ML MDV) ONE (09:16)
--- NOTE | 2021-01-06 09:39 | P.PCN ---
Date of Procedure: 01/06/21 Description of Procedure: PREOPERATIVE DIAGNOSIS: Gastroesophageal reflux disease. Morbid obesity. POSTOPERATIVE DIAGNOSIS: Morbid obesity. Gastritis. Gastroesophageal reflux disease. OPERATION: Esophagogastroduodenoscopy with biopsies along antrum. SURGEON: Ximena Nevarez MD ANESTHESIA: MAC. INDICATIONS: The patient is a 30-year-old female who presents with a history of reflux disease. Benefits and risks of the procedure were described. Informed consent was obtained. DESCRIPTION: The patient was brought into the endoscopy suite and laid in the left lateral decubitus position. An Olympus gastroscope was passed along the posterior oropharynx down to the distal esophagus where the squamocolumnar junction was encountered at 42 cm from the incisors. The stomach was entered and no bile reflux was found. Additional findings are listed below. Biopsies with cold forceps were obtained of the antrum. The first through third portion of the duodenum was examined and unremarkable. Retroflexion of the scope confirmed Hill grade 2 lower esophageal valve. The squamocolumnar junction demonstrated LA grade B erosive esophagitis. The stomach was desufflated. The patient tolerated the procedure well. FINDINGS: Squamocolumnar junction 42 cm from the incisors. Diaphragmatic hiatus at 42 cm. Hill grade 2 lower esophageal valve. LA grade B erosive esophagitis. No active duodenitis. Chronic gastritis Hypertrophic posterior oropharynx and tonsils for sleep apnea RECOMMENDATIONS: Upper endoscopy as needed. Recommend assessment for sleep apnea Plan - Discharge Summary Discharge Rx Participant: No New Discharge Prescriptions: Continue amLODIPine [Norvasc] 5 mg PO DAILY Dorzolamide HCl [Trusopt 2%] 1 drop BOTH EYES DAILY Acetaminophen [Tylenol Extra Strength] 500 mg PO Q6H PRN PRN Reason: Pain Ergocalciferol [Vitamin D2 (1250 Mcg = 14111 Iu)] 50,000 unit PO WEEKLY Calcium Citrate 1,500 mg PO DAILY Vitamin A [Vitamin A (8,000 Units = 2,400 MCG)] 10,000 unit PO DAILY Discharge Medication List amLODIPine [Norvasc] 5 mg PO DAILY 10/21/15 [History] Dorzolamide HCl [Trusopt 2%] 1 drop BOTH EYES DAILY 12/06/16 [History] Acetaminophen [Tylenol Extra Strength] 500 mg PO Q6H PRN 09/04/20 [History] Calcium Citrate 1,500 mg PO DAILY 11/13/20 [History] Ergocalciferol [Vitamin D2 (1250 Mcg = 82170 Iu)] 50,000 unit PO WEEKLY 11/13/20 [History] Vitamin A [Vitamin A (8,000 Units = 2,400 MCG)] 10,000 unit PO DAILY 11/13/20 [History] [facility] [facility] [place] [place] [facility] [place] Patient Instructions/Handouts: Diet for Stomach Ulcers and Gastritis (ED), Gastroesophageal Reflux Disease (DC), Sleep Apnea (GEN) Discharge Disposition: HOME SELF-CARE
[2021-01-06 09:45] VITALS: RESP 16
[2021-01-06 10:12] VITALS: BP 149/93; PULSE 94
== END 2021-01-06 11:18 | disposition home or self-care (01) ==
LOC: ORWHC2ENDO 08:07
PROVIDERS: ATTEND Surgery Plastic and Reconstructive Surgery
DX: K21.9 Gastro-esophageal reflux disease without esophagitis (principal); K29.50 Unspecified chronic gastritis without bleeding; K22.10 Ulcer of esophagus without bleeding; J35.1 Hypertrophy of tonsils; J39.2 Other diseases of pharynx; I10 Essential (primary) hypertension; D64.9 Anemia, unspecified; G47.30 Sleep apnea, unspecified; H54.8 Legal blindness, as defined in USA; Z98.42 Cataract extraction status, left eye; Z87.891 Personal history of nicotine dependence; Z79.899 Other long term (current) drug therapy; E66.01 Morbid (severe) obesity due to excess calories; Z68.43 Body mass index [BMI] 50.0-59.9, adult; Z86.73 Personal history of transient ischemic attack (TIA), and cerebral infarction without residual deficits
CPT/HCPCS: 81025; 88305; 43239; J2001; J9206

== ENCOUNTER → 2021-01-15 | Outpatient (CLI) | payer MEDICARE, OTHER ==
[2021-01-15 15:38] VITALS: BP 178/118; PULSE 99; RESP 18; TEMP 99.4; BMI 54.3
--- NOTE | 2021-01-15 16:06 | P.BASOAP ---
Subjective Progress Note Date: 01/15/21 Labs reviewed. She needs sleep apnea. EGD reviewed. Follow up after correction sleep apnea. Objective - Vital Signs Vital signs: Vital Signs Temp 99.4 F 01/15/21 15:29 Pulse 99 01/15/21 15:29 Resp 18 01/15/21 15:29 BP 178/118 01/15/21 15:29 Pulse Ox Intake & Output 01/14/21 01/15/21 01/15/21 18:59 06:59 18:59 Weight 148.325 kg Assessment/Plan Plan: Date: 01/15/21 Initial Weight: Initial BMI: Current Weight: 148.325 kg Current BMI: 54.3 Type of Surgery: Total Volume in Band: Previous Volume: Volume Removed: Volume Added: Band Size:
== END | disposition home or self-care (01) ==
LOC: BARWHC3 14:58
PROVIDERS: ATTEND Surgery Plastic and Reconstructive Surgery
DX: E66.01 Morbid (severe) obesity due to excess calories (principal); Z68.43 Body mass index [BMI] 50.0-59.9, adult
CPT/HCPCS: 99211

== ENCOUNTER → 2021-02-03 | Outpatient (CLI) | payer MEDICARE, OTHER ==
[2021-02-03 13:21] VITALS: BMI 55.4
== END | disposition home or self-care (01) ==
LOC: BARWHC3 08:45
PROVIDERS: ATTEND Surgery Plastic and Reconstructive Surgery
DX: E66.01 Morbid (severe) obesity due to excess calories (principal); Z71.3 Dietary counseling and surveillance
CPT/HCPCS: 97804

== ENCOUNTER → 2021-04-17 | Outpatient (CLI) | payer MEDICARE, OTHER ==
[2021-04-17 23:11] LABS: ALT 21 U/L (8-44); AST 20 U/L (13-35); African American GFR (CKD) 76.6 (60.0-200.0); Albumin 4.3 g/dL (3.8-4.9); Albumin/Globulin Ratio 1.27 (1.60-3.17); Alkaline Phosphatase 72 U/L (41-126); BUN/Creat Ratio 17.61 Ratio (12.00-20.00); Blood Urea Nitrogen 19.9 mg/dL (9.0-27.0); Calcium 9.4 mg/dL (8.7-10.3); Carbon Dioxide 23.8 mmol/L (20.0-27.5); Chloride 103 mmol/L (96-109); Globulin 3.4 g/dL (1.6-3.3); Glucose 90 mg/dL (70-110); Non-African American GFR(CKD) 66.1 (60.0-200.0); Potassium 4.3 mmol/L (3.5-5.5); Sodium 138 mmol/L (135-145); Total Bilirubin <0.15 mg/dL (0.30-1.20); Total Protein 7.7 g/dL (6.2-8.2)
[2021-04-17 23:21] LABS: Basophils # (A) 0.04 X 10*3/uL (0.00-0.10); Basophils % (A) 0.5 %; Eosinophils # (A) 0.24 X 10*3/uL (0.04-0.35); HCT 30.9 % (37.2-46.3); HGB 9.3 g/dL (12.0-15.0); Immature Grans, Automated 0.3 %; Lymphocytes # (A) 2.97 X 10*3/uL (0.90-5.00); Lymphocytes % (A) 37.6 %; MCH 23.9 pg (27.0-32.0); MCHC 30.1 g/dL (32.0-37.0); MCV 79.4 fL (80.0-97.0); Mean Platelet Volume 10.9 fL (9.5-12.2); Monocytes # (A) 0.49 X 10*3/uL (0.20-1.00); Monocytes % (A) 6.2 %; NRBC Per 100 WBC 0 /100 WBCS (0.0-0.0); Neutrophils # (A) 4.14 X 10*3/uL (1.80-7.70); Neutrophils % (A) 52.4 %; Platelet Count 455 X 10*3/uL (140-440); RBC 3.89 X 10*6/uL (4.10-5.20); RDW 14.6 % (11.5-14.5)
[2021-04-18 13:09] LABS: Coronavirus SARS CoV-2 Not Detected (Not Detected)
== END | disposition home or self-care (01) ==
LOC: LABPAT 15:50
PROVIDERS: ATTEND Surgery Plastic and Reconstructive Surgery
DX: Z01.812 Encounter for preprocedural laboratory examination (principal)
CPT/HCPCS: 80053; 85025; 36415; U0003; C9803

== ENCOUNTER 2021-07-21 09:19 | Inpatient (IN) | payer MEDICARE, OTHER ==
--- NOTE | 2021-07-21 07:10 | P.GSHP ---
History of Present Illness H&P Date: 07/21/21 CHIEF COMPLAINT: Morbid obesity HISTORY OF PRESENT ILLNESS: Apple Roberts is a 30-year-old female who comes with lifelong morbid obesity. She has completed medical supervised weight loss. She has completed cardiac risk assessment. She is looking into the sleeve gastrectomy. At height of 5 feet 5 inches, her ideal body weight is 149 pounds. She comes in 327 pounds from 326 pounds, 3 months ago. She has gained 1 pound in 3 months. Her body mass index is 54.6. She is 178 pounds overweight. PAST MEDICAL HISTORY: 1. Morbid obesity due to excess calories 2. Body mass index of 53.4, initial 3. Hypertensive heart disease. 4. Glaucoma 5. Legally blind with retinal detachment 6. Anxiety 7. Osteoarthritis of the lower back 8. Osteoarthritis of the knee 9. Osteoarthritis of the feet PAST SURGICAL HISTORY: 1. Multiple eye and retinal surgery 2. Upper endoscopy HOME MEDICATIONS: See list and reviewed. ALLERGIES: See list and reviewed SOCIAL HISTORY: Past tobacco use. FAMILY HISTORY: No family history of ulcerative colitis disease or Crohn's disease. Family history of morbid obesity. No lupus in the family. No reports of stomach or esophageal cancer. Her mother side of the family has trouble with weight. Her aunt had the gastric bypass. Her father did well with the gastric sleeve. REVIEW OF ORGAN SYSTEMS: CONSTITUTIONAL: At height of 5 feet 5 inches, her ideal body weight is 149 pounds. She comes in 326 pounds. Her body mass index was 54.4. She is 177 pounds overweight. HEENT: Denies any active troubles with hearing. She is legally blind. ENDOCRINE: Denies diabetes. No hypothyroidism. CARDIOVASCULAR: Denies reports of palpitations or heart attacks or chest pain. Has hypertensive heart disease. RESPIRATORY: Denies daytime somnolence. Denies asthma. GASTROINTESTINAL: Denies any bright red blood per rectum. No diarrhea. No constipation. Has gastroesophageal reflux disease. GENITOURINARY: No recent blood in urine MUSCULOSKELETAL: Has lower back pain and joint pain. Has osteoarthritis of the knees. NEURO: No headaches. No seizure disorders. PSYCH: No suicidal ideation. RHEUMATOLOGIC: No lupus. No rheumatoid arthritis. HEMATOLOGIC: Denies any abnormal bleeding or bruising. SKIN: No rash. No skin cancer. PHYSICAL EXAM: VITAL SIGNS: Height 5 foot 5 inches, weight 327 pounds. BMI 54.6 GENERAL: Well-developed in no acute distress. HEENT: No scleral icterus. Extraocular movements grossly intact. Hears conversational speech. No nasal drainage. NECK: Supple without lymphadenopathy. CHEST: Nonlabored respirations with equal bilateral excursions. CARDIOVASCULAR: Regular rate and regular rhythm. Distal 2+ pulses. ABDOMEN: Obese, soft, nontender, nondistended. MUSCULOSKELETAL: No clubbing, cyanosis. NEURO: No focal or lateralizing signs. Cranial nerves 2 through 12 grossly within normal limits. PSYCH: Appropriate affect. Alert and oriented to person, place and time. SKIN: Good skin turgor. Well perfused. ASSESSMENT: 1. Morbid obesity due to excess calories 2. Body mass index of 54.4 3. Hypertensive heart disease. 4. Glaucoma 5. Legally blind with retinal detachment 6. Anxiety 7. Osteoarthritis of the lower back 8. Osteoarthritis of the knee 9. Osteoarthritis of the feet 10. Iron deficiency anemia 11. Diabetes type II 12. Hypertriglyceridemia 13. Vitamin A deficiency 14. Vitamin D deficiency 15. Secondary hyperparathyroidism 16. Tobacco nicotine use. 17. Abnormal EKG PLAN: 1. Bariatric options between a sleeve, band and a Allie-en-Y gastric bypass were reviewed in detail. The patient elected for a sleeve gastrectomy. Robotic assisted approach described. 2. A 2 week high-protein low caloric 800 kcal diet described to address hepatomegaly. 3. DVT prophylaxis per [place] [facility]. 4. Antibiotic prophylaxis. 5 Inpatient hospitalization anticipated for more than 2 nights. 6. All questions and concerns were addressed with the patient. 7. Overall, patient has expressed understanding of bariatric care including postoperative diet and commitment of lifestyle. Patient should benefit from surgical intervention for correction of her morbid obesity. 8. She is elevated risk with uncontrolled hypertension. Past Medical History Past Medical History: Blood Disorder, Hypertension, Sleep Apnea/CPAP/BIPAP Additional Past Medical History / Comment(s): Legally blind, hx retinal detachment at 15 years old. Anemia. CPAP use. History of Any Multi-Drug Resistant Organisms: None Reported Additional Past Surgical History / Comment(s): Retinal surgery, eye surgeries, cataract surgery left eye. Past Anesthesia/Blood Transfusion Reactions: No Reported Reaction Past Psychological History: Anxiety Smoking Status: Former smoker Past Alcohol Use History: Occasional Additional Past Alcohol Use History / Comment(s): QUIT SMOKING 01/2019, had smoked <10 yrs. Past Drug Use History: None Reported - Past Family History Mother Family Medical History: No Reported History Medications and Allergies Home Medications Medication Instructions Recorded Confirmed Type amLODIPine [Norvasc] 5 mg PO QAM 10/21/15 07/15/21 History Dorzolamide HCl [Trusopt 2%] 1 drop BOTH EYES HS 12/06/16 07/15/21 History Acetaminophen [Tylenol Extra 500 mg PO Q6H PRN 09/04/20 07/15/21 History Strength] Calcium Citrate 1,500 mg PO DAILY 11/13/20 07/15/21 History Ergocalciferol [Vitamin D2 (1250 50,000 unit PO MO 11/13/20 07/15/21 History Mcg = 94107 Iu)] Vitamin A [Vitamin A (8,000 Units 10,000 unit PO DAILY 11/13/20 07/15/21 History = 2,400 MCG)] Control Pill (Unknown Name) 1 tab PO DAILY 07/15/21 07/15/21 History Ferrous Sulfate [Iron] 325 mg PO DAILY 07/15/21 07/15/21 History Allergies Allergy/AdvReac Type Severity Reaction Status Date / Time No Known Allergies Allergy Verified 07/15/21 17:08
[~2021-07-21 09:19] MED LIST changes: +ACETAMINOPHEN TAB 500 MG TAB PO PRN; +CHLORHEXIDINE GLUCONATE 15 ML CUP MUCOUS MEM PRN; +DEXAMETHASONE SOD PHOSPHATE 4 MG/ML 1 ML VIAL IV ONE; +ENOXAPARIN 40 MG/0.4 ML SYRINGE SQ PRN; +GABAPENTIN 300 MG CAP PO PRN; +HYDROmorphone 0.5 MG/0.5 ML SYRINGE IVP PRN; -LACTATED RINGERS 1,000 ML IV SCH; +LIDOCAINE 1% (10MG/ML) FOR IV START INTRADERMA PRN; +ONDANSETRON 4 MG/2 ML VIAL IVP ONE; +PANTOPRAZOLE 40 MG/10 ML VIAL IVP PRN; +SCOPOLAMINE 1 MG/72 HR PATCH TRANSDERM ONE; +SCOPOLAMINE 1 MG/72 HR PATCH TRANSDERM PRN; +ceFAZolin 3 GM in SODIUM CHLORIDE 0.9% 100 ML IVPB PRN
[2021-07-21] MEDS: LACTATED RINGERS 1,000 ML IV SCH (10:48)
[2021-07-21] MEDS ORDERED: ROCURONIUM 10 MG/ML (5 ML VIAL) IV ONE (11:40)
[2021-07-21] MEDS ORDERED: fentaNYL (PF) 50 MCG/ML 2 ML AMP ONE (11:40)
[2021-07-21] MEDS ORDERED: GLYCOPYRROLATE 0.2 MG/ML 2 ML VIAL ONE (11:40)
[2021-07-21] MEDS ORDERED: NEOSTIGMINE 1 MG/ML 10 ML VIAL ONE (11:40)
[2021-07-21] MEDS ORDERED: MIDAZOLAM 2 MG/2 ML VIAL ONE (11:40)
[2021-07-21] MEDS ORDERED: SUCCINYLCHOLINE CHLORIDE 100 MG/5 ML SYR IV ONE (11:40)
[2021-07-21] MEDS ORDERED: PROPOFOL 10 MG/ML 20 ML VIAL IV ONE (11:40)
[2021-07-21] MEDS ORDERED: LIDOCAINE 2% INJ 20 MG/ML (2 ML VIAL) ONE (11:40)
[2021-07-21] MEDS ORDERED: HYDROmorphone (PF) 1 MG/ML ONE (11:40)
[2021-07-21] MEDS ORDERED: LIDOCAINE 1%-EPI 1:100,000 20 ML VIAL SQ ONE (12:11)
[2021-07-21] MEDS ORDERED: NALOXONE 0.4 MG/ML 1 ML VIAL IV PRN ×2 (13:47→13:50)
[2021-07-21] MEDS ORDERED: diphenhydrAMINE 50 MG/ML 1 ML VIAL IVP PRN (13:48)
--- NOTE | 2021-07-21 13:56 | P.OP ---
Date of Procedure: 07/21/21 Description of Procedure: SURGEON: VANESSA CASTANON MD PREOPERATIVE DIAGNOSES: 1. Morbid obesity due to excess calories 2. Body mass index of 54.4 3. Hypertensive heart disease. 4. Glaucoma 5. Legally blind with retinal detachment 6. Anxiety 7. Osteoarthritis of the lower back 8. Osteoarthritis of the knee 9. Osteoarthritis of the feet 10. Iron deficiency anemia 11. Diabetes type II 12. Hypertriglyceridemia 13. Vitamin A deficiency 14. Vitamin D deficiency 15. Secondary hyperparathyroidism 16. Tobacco nicotine use in remission. 17. Abnormal EKG POSTOPERATIVE DIAGNOSES: 1. Morbid obesity due to excess calories 2. Body mass index of 54.4 3. Hypertensive heart disease. 4. Glaucoma 5. Legally blind with retinal detachment 6. Anxiety 7. Osteoarthritis of the lower back 8. Osteoarthritis of the knee 9. Osteoarthritis of the feet 10. Iron deficiency anemia 11. Diabetes type II 12. Hypertriglyceridemia 13. Vitamin A deficiency 14. Vitamin D deficiency 15. Secondary hyperparathyroidism 16. Tobacco nicotine use in remission. 17. Abnormal EKG OPERATION: 1. Robotic assisted daVinci Xi laparoscopic sleeve gastrectomy with 40-Vincentian bougie, multiport. 2. Intraoperative esophagogastroduodenoscopy. ANESTHESIA: Gen. local anesthetic ESTIMATED BLOOD LOSS: 5 mL SPECIMENS REMOVED: Sleeve gastrectomy COMPLICATIONS: None. FINDINGS: 1. Negative intraoperative esophagogastrojejunoscopy leak test. 2. No hepatomegaly and no large hiatus hernia. 3. Total of 6 staplers used including 3 - 60 mm blue robot leny and 3 - 60 mm green robot loads used to create the gastric sleeve. 4. Sleeve gastrectomy, 28 x 6 cm 5. Dense abdominal wall INDICATIONS: Apple Roberts is a 30-year-old female who comes with lifelong morbid obesity. She has completed medical supervised weight loss. She has completed cardiac risk assessment. She is looking into the sleeve gastrectomy. At height of 5 feet 5 inches, her ideal body weight is 149 pounds. She comes in 327 pounds from 326 pounds, 3 months ago. She has gained 1 pound in 3 months. Her body mass index is 54.6. She is 178 pounds overweight. All surgical options for morbid obesity had been described using the [place] bariatric surgery collaborative comorbidity resolution including complication risk score. A second-generation bariatric consent form was described in detail including the possibility of protein malnutrition, leaks, gastric stricture, venous thrombosis, gastroesophageal reflux disease, need for further surgery for which she demonstrated understanding. Benefits and risks of the procedure were described at length. Informed consent was obtained. DESCRIPTION: The patient was brought into the operating room theater. Preoperatively she had received Lovenox subcutaneously for DVT prophylaxis. Additionally she had Peridex oral solution as an oral decontaminant. After general induction, the abdomen was prepped and draped in standard sterile fashion. An Ioban draping was placed along the abdomen. A robotic da Enrique Xi system was prepped and primed. At 15 cm from the xiphoid, proposed port sites were marked with indelible marker along the anterior axillary line bilaterally, mid axillary line bilaterally with each ports were marked 10 to 15 cm from each other. The robotic stapler port was marked for the right midclavicular line. A 5 mm 0 degrees laparoscopic trocar entry was performed along the left upper quadrant. The abdomen was insufflated to 15 mmHg pressure was tolerated well. Diagnostic laparoscopy demonstrated no injury to bowel, viscera, or mesentery. No evidence of large hiatus hernia was identified. The liver edge was sharp consistent with 2 week low-carb high-protein diet. A 8 mm port was placed along the left upper abdominal wall after exchanging the 5 mm port. A separate 8 mm port was placed along the left lateral abdominal wall. Please note that the ports were placed at least 20 cm away from the target anatomy. Care was taken to check each robotic arms were safely away from collision with the bed or the patient. At the epigastrium, a medium sized Arnav liver retractor was placed under direct visualization with the [employer] Screener placed under the right shoulder of the patient. Next, 12-mm robot stapler port was placed along the right upper quadrant. The camera 8-mm port was maintained along the epigastrium. The patient was repositioned in reverse Trendelenburg position at 21-degrees after lowering the bed. The robot was docked along the left side of the patient. Using a grasper for arm 4, a vessel sealer for arm 3, including grasper for arm 1, the robotic system was docked and primed as described. Instruments were interchanged by the legislative assistant for stapler loads. The camera was placed at 30- degrees down. I had sat at the console. The pylorus was identified and 6 cm proximally along the greater curvature of the stomach, the short gastrics were mobilized upwards to the angle of His using a vessel sealer. Hemostasis was excellent during this portion of the procedure. Next, the upper pole of the stomach was adherent to the left sil, which was gently dissected free using atraumatic grasper. I went to the head of the bed and placed 40-Vincentian blunt bougie into the stomach. The bougie was readjusted by the nurse winery worker. Robotic stapler green load 60 mm 3 followed by blue 60 mm x 3 loads were used to create the sleeve. Initial firing was across the antrum of the stomach towards the angle of His. The staple line was linear without corkscrewing. The space from the angularis incisura of the sleeve was approximately 4 cm. I then went to the head of the bed to perform the intraoperative esophagogastroduodenoscopy leak test. The bougie was withdrawn. The upper pole of the stomach was bathed using normal saline solution. The scope was withdrawn with careful inspection along the staple line for which no leaks were found along the entire length. Additionally,the sleeve was completely hemostatic without any encroachment along the angularis incisura. Its topology was a soft "J". No stricture was encountered upon placement of the scope. The GI tract was desufflated. The patient tolerated this portion of the procedure well. The scope was completely withdrawn. The robot was undocked. I then rescrubbed into case, whereby the irrigation fluid was aspirated from the abdominal cavity. Tisseel fibrin sealant was placed along the entire staple length. Once dried the Arnav liver retractor was removed. Attention was now brought to removal of the specimen. The distal end of the sleeve gastrectomy specimen was brought out through the 12 mm port at the left upper quadrant. The specimen was gently removed en total. No contamination had occurred during this process. All instruments and pneumoperitoneum including irrigation fluid was removed from the abdominal cavity. The 12 mm port site was closed using 0-Vicryl and Jose Flanneryson and irrigated with diluted hydrogen peroxide. The final incisions were closed using subcuticular interrupted suture of 4-0 Monocryl. Exofin was applied to the skin once the skin had been cleansed. OptiFoam dressing was placed along the stomach extraction site. The sleeve specimen was measured and checked also for leaks which none were found. At the end of the procedure, needle, sponge, and instrument count was verified correct by the surgical aides teacher. The patient was taken to the postanesthesia care unit in stable condition. She had tolerated the procedure well. Intraoperative films and findings were reviewed with the patient's family.
[2021-07-21] MEDS ORDERED: LABETALOL 5 MG/ML VIAL MDV IVP ONE (14:19)
[2021-07-21] MEDS: fentaNYL PCA 500 MCG/50 ML BAG IV PRN (16:13)
[2021-07-21] MEDS: 0.9% NACL WITH KCL 20 MEQ/L 1,000 ML IV SCH (16:20)
[2021-07-21] MEDS: SIMETHICONE 40 MG/0.6 ML DROPS 2,000 MG/30 ML BOTTLE PO SCH ×2 (17:45→23:56)
[2021-07-21] MEDS: ACETAMINOPHEN IV (For NPO) 1,000 MG in EMPTY BAG 1 BAG IVPB SCH ×2 (17:59→23:58)
[2021-07-21] MEDS ORDERED: DEXAMETHASONE SOD PHOSPHATE 10 MG/ML 1 ML VIAL IVP ONE (18:00)
[2021-07-21] MEDS: ONDANSETRON 4 MG/2 ML VIAL IVP SCH ×2 (18:00→23:52)
[2021-07-21] MEDS ORDERED: SODIUM CHLORIDE 0.9% 2,000 ML IV ONE (19:00)
[2021-07-21] MEDS: ALBUTEROL NEBULIZED 2.5 MG/3 ML INHALATION SCH ×2 (19:58→19:59)
[2021-07-21] MEDS ORDERED: ceFAZolin 3 GM in SODIUM CHLORIDE 0.9% 100 ML IVPB SCH (20:00)
[2021-07-21] MEDS ORDERED: DORZOLAMIDE HCL 2% DROPS 10 ML BTL BOTH EYES SCH (21:00)
[2021-07-21] MEDS: PANTOPRAZOLE 40 MG/10 ML VIAL IV SCH (22:16)
--- NOTE | 2021-07-21 22:20 | P.CONS ---
History of Present Illness - Reason for Consult Consult date: 07/21/21 - Chief Complaint Medical management - History of Present Illness 30-year-old woman with a medical history of obesity class III, hypertension, glaucoma, iron deficiency anemia presented for sleep gastrectomy. Medicine was consulted by general surgery service for medical management. Patient was sleeping but arousable at the time of my evaluation, appeared comfortable while lying in bed. She had no complaints. She denied fevers, chills, nausea, vomiting, chest pain, palpitations, sick be, presyncope, cough, dyspnea, abdominal pain, constipation, diarrhea, dysuria, dyschezia, numbness/weakness of extremities. On my evaluation, patient is afebrile, 158/96, heart rate 89, 98% on room air. No labs or imaging to review. All Systems reviewed and pertinent positives and negatives noted in HPI, all other symptoms are negative Gen: awake, alert HEENT: normocephalic, atraumatic, good hearing acuity, moist mucous membranes Resp: good air exchange, breathing comfortably with no accessory muscle use CVS: good distal perfusion x 4, GI: soft, NTTP, ND : no SPT, no CVAT, merritt catheter not present MSK: no pitting edema, no clubbing Neuro: non-focal, moving all extremities Psych: cooperative, euthymic mood Assessment/plan: Hypertension Glaucoma Iron Deficiency anemia -Home medications reviewed and reconciled -hydralazine PRN for SBP > 160, DBP > 100 Obesity class III status post sleeve gastrectomy -Care per primary team -DVT prophylaxis per primary team Past Medical History Past Medical History: Blood Disorder, Hypertension, Sleep Apnea/CPAP/BIPAP Additional Past Medical History / Comment(s): Legally blind, hx retinal detachment at 15 years old. Anemia. CPAP use. History of Any Multi-Drug Resistant Organisms: None Reported Additional Past Surgical History / Comment(s): Retinal surgery, eye surgeries, cataract surgery left eye. Gastric sleeve 07/21/2021 Past Anesthesia/Blood Transfusion Reactions: No Reported Reaction Smoking Status: Former smoker - Past Family History Mother Family Medical History: No Reported History Medications and Allergies Home Medications Medication Instructions Recorded Confirmed Type amLODIPine [Norvasc] 5 mg PO QAM 10/20/07/15/21 History Dorzolamide HCl [Trusopt 2%] 1 drop BOTH EYES HS 12/06/16 07/15/21 History Acetaminophen [Tylenol Extra 500 mg PO Q6H PRN 09/04/20 07/15/21 History Strength] Calcium Citrate 1,500 mg PO DAILY 11/13/20 07/15/21 History Ergocalciferol [Vitamin D2 (1250 50,000 unit PO MO 11/13/20 07/15/21 History Mcg = 72400 Iu)] Vitamin A [Vitamin A (8,000 Units 10,000 unit PO DAILY 11/13/20 07/15/21 History = 2,400 MCG)] Control Pill (Unknown Name) 1 tab PO DAILY 07/15/21 07/15/21 History Ferrous Sulfate [Iron] 325 mg PO DAILY 07/15/21 07/15/21 History Allergies Allergy/AdvReac Type Severity Reaction Status Date / Time No Known Allergies Allergy Verified 07/15/21 17:08 Physical Exam Osteopathic Statement: *. No significant issues noted on an osteopathic structural exam other than those noted in the History and Physical/Consult. Vitals: Vital Signs Temp Pulse Pulse Resp BP Pulse Ox FiO2 07/21/21 21:01 100 21 07/21/21 20:13 83 07/21/21 20:01 86 07/21/21 19:20 98.6 F 89 18 158/96 98 07/21/21 16:45 93 163/93 07/21/21 16:30 92 163/88 07/21/21 16:15 84 156/91 07/21/21 16:00 85 177/107 07/21/21 15:45 91 170/97 96 07/21/21 15:30 92 171/103 96 07/21/21 15:15 91 172/97 96 07/21/21 15:00 97.8 F 83 17 167/97 97 07/21/21 14:38 82 20 172/89 95 07/21/21 14:26 82 15 172/81 95 07/21/21 14:17 102 H 19 193/89 95 07/21/21 14:02 101 H 17 188/101 96 07/21/21 13:47 97.5 F L 101 H 18 185/98 95 07/21/21 10:11 97.9 F 97 18 200/98 98 Intake and Output 07/21/21 07/21/21 07/21/21 06:59 14:59 22:59 Intake Total 1100 Output Total 5 450 Balance 1095 -450 Intake: IV 1100 Output: Urine 450 Stool 0 Estimated Blood Loss 5 Other: Voiding Method Toilet # Voids 1 Weight 141.9 kg 141.9 kg
[2021-07-21 23:18] LABS: % Iron Saturation 4.65 (12.00-45.00)
[2021-07-21] MEDS: DEXAMETHASONE SOD PHOSPHATE 4 MG/ML 1 ML VIAL IVP SCH (23:54)
[2021-07-21] MEDS: HYOSCYAMINE ORAL DROPS 1.875 MG/15 ML BOTTLE PO PRN (23:57)
[2021-07-22] MEDS: hydrALAZINE HCL 25 MG TAB PO PRN ×2 (00:39→07:16)
[2021-07-22] MEDS: 0.9% NACL WITH KCL 20 MEQ/L 1,000 ML IV SCH ×2 (03:56→04:05)
[2021-07-22] MEDS: fentaNYL PCA 500 MCG/50 ML BAG IV PRN (04:16)
[2021-07-22] MEDS: DEXAMETHASONE SOD PHOSPHATE 4 MG/ML 1 ML VIAL IVP SCH ×2 (05:52→12:07)
[2021-07-22] MEDS: ONDANSETRON 4 MG/2 ML VIAL IVP SCH ×2 (05:52→12:05)
[2021-07-22] MEDS: ACETAMINOPHEN IV (For NPO) 1,000 MG in EMPTY BAG 1 BAG IVPB SCH ×2 (05:53→12:05)
[2021-07-22] MEDS: HYOSCYAMINE ORAL DROPS 1.875 MG/15 ML BOTTLE PO PRN (05:53)
[2021-07-22] MEDS: SIMETHICONE 40 MG/0.6 ML DROPS 2,000 MG/30 ML BOTTLE PO SCH ×2 (05:54→12:06)
[2021-07-22] MEDS: LACTATED RINGERS 1,000 ML IV SCH (05:54)
[2021-07-22 07:27] VITALS: RESP 19; TEMP 97.6
[2021-07-22] MEDS ORDERED: 0.9% NACL WITH KCL 20 MEQ/L 1,000 ML IV SCH (08:00)
[2021-07-22] MEDS ORDERED: amLODIPine 5 MG TAB PO SCH (09:00)
[2021-07-22] MEDS ORDERED: ENOXAPARIN 40 MG/0.4 ML SYRINGE SQ SCH (09:00)
[2021-07-22] MEDS ORDERED: SODIUM FERRIC GLUCONAT-SUCROSE 125 MG in SODIUM CHLORIDE 0.9% 100 ML IVPB SCH (09:00)
--- NOTE | 2021-07-22 09:20 | FL ---
SINGLE CONTRAST UPPER GI EXAMINATION: CLINICAL HISTORY: 30-year-old female postop bariatric surgery TECHNIQUE: Single contrast exam performed with 50 ml Isovue-370 contrast. Total fluoroscopy time: 1 minute 37 seconds. Total images: 31. FINDINGS: The patient swallowed oral contrast without difficulty or delay. Esophageal peristalsis and motility are within normal limits. There is prompt passage of contrast from esophagus into the proximal stom ach but then initial hesitancy in passage across the gastric sleeve. As the patient took more swallow s, eventual passage is noted across this lesion which progressively increases. There is no extravasat ion of contrast is suggested leak. Contrast is seen to flow into the proximal duodenum. No free air s een below either hemidiaphragm. IMPRESSION: No evidence of leak status post sleeve gastrectomy. Initial mild relative obstruction likely due to p ostoperative edema.
[2021-07-22 09:22] LABS: Basophils # (A) 0.01 X 10*3/uL (0.00-0.10); Basophils % (A) 0.1 %; Eosinophils # (A) 0 X 10*3/uL (0.04-0.35); Eosinophils % (A) 0 %; HCT 33.9 % (37.2-46.3); HGB 11.1 g/dL (12.0-15.0); Immature Grans, Automated 0.4 %; Lymphocytes # (A) 0.96 X 10*3/uL (0.90-5.00); Lymphocytes % (A) 8.2 %; MCH 26.2 pg (27.0-32.0); MCHC 32.7 g/dL (32.0-37.0); Mean Platelet Volume 10.2 fL (9.5-12.2); Monocytes # (A) 0.39 X 10*3/uL (0.20-1.00); Monocytes % (A) 3.4 %; NRBC Per 100 WBC 0 /100 WBCS (0.0-0.0); Neutrophils # (A) 10.23 X 10*3/uL (1.80-7.70); Neutrophils % (A) 87.9 %; Platelet Count 313 X 10*3/uL (140-440); RBC 4.24 X 10*6/uL (4.10-5.20); RDW 17.7 % (11.5-14.5); WBC 11.64 X 10*3/uL (4.50-10.00)
[2021-07-22] MEDS: PANTOPRAZOLE 40 MG/10 ML VIAL IV SCH (09:22)
[2021-07-22] MEDS: ALBUTEROL NEBULIZED 2.5 MG/3 ML INHALATION SCH ×2 (09:27→12:20)
--- NOTE | 2021-07-22 09:27 | P.DS ---
Providers Date of admission: 07/21/21 09:19 Expected date of discharge: 07/22/21 Attending physician: Ximena Nevarez Consults: 07/21/21 16:19 Consult Physician Urgent Consulting Provider: Jessica Sanchez Consult Reason/Comments: Uncontrolled hypertension Do you want consulting provider notified?: Yes Primary care physician: Beny Jackman [facility] Course: POSTOPERATIVE DIAGNOSES: 1. Morbid obesity due to excess calories 2. Body mass index of 54.4 3. Hypertensive heart disease. 4. Glaucoma 5. Legally blind with retinal detachment 6. Anxiety 7. Osteoarthritis of the lower back 8. Osteoarthritis of the knee 9. Osteoarthritis of the feet 10. Iron deficiency anemia 11. Diabetes type II 12. Hypertriglyceridemia 13. Vitamin A deficiency 14. Vitamin D deficiency 15. Secondary hyperparathyroidism 16. Tobacco nicotine use in remission. 17. Abnormal EKG COURSE: Apple Roberts is a 30-year-old female who underwent sleeve gastrectomy. She reports doing well. She did her esophagram. Discharge instructions and bariatric diet were reviewed with her and mother. Otherwise, she is stable for discharge. Follow-up in the bariatric center in 3 days. For her iron deficiency anema, she was given an iron infusion. PHYSICAL EXAM: VITAL SIGNS: Reviewed GENERAL: Well-developed in no acute distress. HEENT: No scleral icterus. Legally blind. Hears conversational speech. No nasal drainage. NECK: Supple without lymphadenopathy. CHEST: Nonlabored respirations with equal bilateral excursions. CARDIOVASCULAR: Regular rate and regular rhythm. Distal 2+ pulses. ABDOMEN: Obese. Incision intact. MUSCULOSKELETAL: No clubbing, cyanosis. NEURO: No focal or lateralizing signs. Cranial nerves 2 through 12 grossly within normal limits. PSYCH: Appropriate affect. Alert and oriented to person, place and time. SKIN: Good skin turgor. Well perfused. Vital Signs Temp 97.6 F 07/22/21 07:26 Pulse 88 07/22/21 09:34 Resp 19 07/22/21 07:26 BP 156/81 07/22/21 08:30 Pulse Ox 100 07/22/21 07:26 FiO2 21 07/21/21 21:01 Intake & Output 07/22/21 07/22/21 07/23/21 06:59 18:59 06:59 Intake Total 2130 Output Total 1700 Balance 430 Weight 141.9 kg Intake: Intake, IV Titration 2100 Amount ACETAMINOPHEN IV (For NPO 100 ) 1,000 mg In Empty Bag 1 bag @ 400 mls/hr IVPB Q6HR [facility] Rx#:[id number] Sodium Chloride 0.9% 2, 2000 000 ml @ 999 mls/hr IV . Q2H1M ONE Rx#:[id number] Oral 30 Output: Urine 1700 Other: Voiding Method Toilet # Voids 1 3 Laboratory Last Values WBC 11.64 X 10*3/uL (4.50-10.00) H 07/22/21 05:19 RBC 4.24 X 10*6/uL (4.10-5.20) 07/22/21 05:19 Hgb 11.1 g/dL (12.0-15.0) L 07/22/21 05:19 Hct 33.9 % (37.2-46.3) L 07/22/21 05:19 MCV 80.0 fL (80.0-97.0) 07/22/21 05:19 MCH 26.2 pg (27.0-32.0) L 07/22/21 05:19 MCHC 32.7 g/dL (32.0-37.0) 07/22/21 05:19 RDW 17.7 % (11.5-14.5) H 07/22/21 05:19 Plt Count 313 X 10*3/uL (140-440) 07/22/21 05:19 MPV 10.2 fL (9.5-12.2) 07/22/21 05:19 Immature Gran % (Auto) 0.4 % 07/22/21 05:19 Absolute Nucleated RBC 0 X 10*3/uL (0.00-0.00) 07/22/21 05:19 Neutrophils % 87.9 % 07/22/21 05:19 Lymphocytes % 8.2 % 07/22/21 05:19 Monocytes % 3.4 % 07/22/21 05:19 Eosinophils % 0 % 07/22/21 05:19 Basophils % 0.1 % 07/22/21 05:19 Immature Gran # 0.05 X 10*3/uL (0.00-0.04) H 07/22/21 05:19 Neutrophils # 10.23 X 10*3/uL (1.80-7.70) H 07/22/21 05:19 Lymphocytes # 0.96 X 10*3/uL (0.90-5.00) 07/22/21 05:19 Monocytes # 0.39 X 10*3/uL (0.20-1.00) 07/22/21 05:19 Eosinophils # 0 X 10*3/uL (0.04-0.35) L 07/22/21 05:19 Basophils # 0.01 X 10*3/uL (0.00-0.10) 07/22/21 05:19 NRBC/100 WBC Diff 0 /100 WBCS (0.0-0.0) 07/22/21 05:19 Sodium 134 mmol/L (135-145) L 07/22/21 05:19 Potassium 4.2 mmol/L (3.5-5.5) 07/22/21 05:19 Chloride 102 mmol/L (96-109) 07/22/21 05:19 Carbon Dioxide 17.8 mmol/L (20.0-27.5) L 07/22/21 05:19 Anion Gap 14.20 mmol/L (10.00-18.00) 07/22/21 05:19 BUN 7.2 mg/dL (9.0-27.0) L 07/22/21 05:19 Creatinine 1.0 mg/dL (0.6-1.5) 07/22/21 05:19 Est GFR (CKD-EPI)AfAm 88.8 (60.0-200.0) 07/22/21 05:19 Est GFR (CKD-EPI)NonAf 76.6 (60.0-200.0) 07/22/21 05:19 Calcium 8.6 mg/dL (8.7-10.3) L 07/22/21 05:19 Phosphorus 2.0 mg/dL (2.4-5.1) L 07/22/21 05:19 Magnesium 2.2 mg/dL (1.5-2.4) 07/22/21 05:19 Iron 19 ug/dL (50-170) L 07/21/21 17:12 TIBC 402 ug/dL (228-460) 07/21/21 17:12 % Saturation 4.65 (12.00-45.00) L 07/21/21 17:12 Transferrin 287.0 mg/dL (204.0-354.0) 07/21/21 17:12 Ferritin 297.0 ng/mL (10.0-291.0) H 07/21/21 17:12 Vitamin D 25-Hydroxy 20.4 ng/mL (30.0-100.0) L 07/21/21 17:12 Blood Type O Positive 07/17/21 16:11 Blood Type Recheck O Pos 07/17/21 16:11 Bld Type Recheck Status No 07/17/21 16:11 Antibody Screen NEGATIVE 07/17/21 16:11 Spec Expiration Date 07/23/21 2311 07/17/21 16:11 Pertinent Studies: Esophagram independently reviewed without leaks or moderate obstruction Procedures: OPERATION: 1. Robotic assisted daVinci Xi laparoscopic sleeve gastrectomy with 40-[place] bougie, multiport. 2. Intraoperative esophagogastroduodenoscopy. ANESTHESIA: Gen. local anesthetic ESTIMATED BLOOD LOSS: 5 mL SPECIMENS REMOVED: Sleeve gastrectomy COMPLICATIONS: None. FINDINGS: 1. Negative intraoperative esophagogastrojejunoscopy leak test. 2. No hepatomegaly and no large hiatus hernia. 3. Total of 6 staplers used including 3 - 60 mm blue robot leny and 3 - 60 mm green robot loads used to create the gastric sleeve. 4. Sleeve gastrectomy, 28 x 6 cm 5. Dense abdominal wall Patient Condition at Discharge: Good Plan - Discharge Summary Discharge Rx Participant: No New Discharge Prescriptions: New bisacodyL [Dulcolax] 5 mg PO DAILY PRN #10 tab PRN Reason: Constipation Simethicone 40 mg/0.6 ml Drops [Mylicon Drops] 40 mg PO PCHS PRN #30 ml PRN Reason: Gas Omeprazole [PriLOSEC] 40 mg PO DAILY #30 cap Acetaminophen Tab [Tylenol Tab] 1,000 mg PO Q6HR PRN #30 tablet PRN Reason: Pain Ondansetron Odt [Zofran Odt] 4 mg PO Q8HR PRN #9 tab PRN Reason: Nausea Continue amLODIPine [Norvasc] 5 mg PO QAM Dorzolamide HCl [Trusopt 2%] 1 drop BOTH EYES HS Control Pill (Unknown Name) 1 tab PO DAILY Discontinued Acetaminophen [Tylenol Extra Strength] 500 mg PO Q6H PRN PRN Reason: Pain Ergocalciferol [Vitamin D2 (1250 Mcg = 73677 Iu)] 50,000 unit PO MO Calcium Citrate 1,500 mg PO DAILY Vitamin A [Vitamin A (8,000 Units = 2,400 MCG)] 10,000 unit PO DAILY Ferrous Sulfate [Iron] 325 mg PO DAILY Discharge Medication List amLODIPine [Norvasc] 5 mg PO QAM 10/21/15 [History] Dorzolamide HCl [Trusopt 2%] 1 drop BOTH EYES HS 12/06/16 [History] Control Pill (Unknown Name) 1 tab PO DAILY 07/15/21 [History] Acetaminophen Tab [Tylenol Tab] 1,000 mg PO Q6HR PRN #30 tablet 07/22/21 [Rx] Omeprazole [PriLOSEC] 40 mg PO DAILY #30 cap 07/22/21 [Rx] Ondansetron Odt [Zofran Odt] 4 mg PO Q8HR PRN #9 tab 07/22/21 [Rx] Simethicone 40 mg/0.6 ml Drops [Mylicon Drops] 40 mg PO PCHS PRN #30 ml 07/22/21 [Rx] bisacodyL [Dulcolax] 5 mg PO DAILY PRN #10 tab 07/22/21 [Rx] Follow up Appointment(s)/Referral(s): Bariatric [place], [place] [NON-STAFF] - 07/25/21 9:00 am Patient Instructions/Handouts: *Surgery [facility] - Managing Your Pain After Surgery Without Opioids, Nutrition after Bariatric Surgery (GEN), Laparoscopic Sleeve Gastrectomy (GEN), Deep Vein Thrombosis Prevention (DC) Activity/Diet/Wound Care/Special Instructions: Liquid diet only for 2 weeks until August 04 No lifting over 4 pounds in 4 weeks, August 21June Shower. No soaking in bath tubs for 2 weeks, until August 04 Please notify your surgeon if you develop nausea and vomiting including new onset of abdominal pain. Continue to use incentive spirometry to prevent pneumonias. Please continue to ambulate at home to prevent blood clots in legs. Follow-up at the bariatric center. May shower. Dressings to be discontinued by surgeon in the office. Drink 64 oz of fluid daily. Start protein shakes on . Notify bariatric center for temp over 101.0, increased pain, drainage from incisions. No straws or carbonated beverages. Liquid diet only. Sugar content should be less than 6 g to avoid dumping syndrome. Take MOM for constipation. CRUSH, OPEN, OR CUT TABLETS LARGER THAN A SIZE OF A TIC TAC Diet: Please follow Bariatric diet as discussed with you by your surgeon, Dr. Nevarez. Special Instructions: Take all of your medications as directed and remember to keep all of your do ctor's appointments and follow-up as needed. Thank you for allowing us to participate in your care, it was truly a pleasure having you for our patient!!! Discharge Disposition: HOME SELF-CARE
[2021-07-22 09:45] LABS: Magnesium 2.2 mg/dL (1.5-2.4)
[2021-07-22 09:46] LABS: Anion Gap 14.2 mmol/L (10.00-18.00); Calcium 8.6 mg/dL (8.7-10.3); Carbon Dioxide 17.8 mmol/L (20.0-27.5); Potassium 4.2 mmol/L (3.5-5.5)
[2021-07-22 09:47] LABS: African American GFR (CKD) 88.8 (60.0-200.0); Blood Urea Nitrogen 7.2 mg/dL (9.0-27.0); Non-African American GFR(CKD) 76.6 (60.0-200.0)
[2021-07-22 09:58] VITALS: BP 156/81; PULSE 82
--- NOTE | 2021-07-22 11:27 | P.PN ---
Subjective Progress Note Date: 07/22/21 Hospital course: Patient is a very pleasant 30-year-old female with a past medical history of morbid obesity and hypertension. She is currently admitted under Gen. surgery team status post gastric sleeve completed on 07/21/[address] Nevarez. We were consulted for continued medical management throughout hospitalization. Physical exam: Patient seen and fully evaluated at bedside this morning. She was resting comfortably in recliner. Reports post-operative pain is controlled. Reports she has been tolerating clear liquid bariatric diet and has had no episodes of nausea or vomiting. Patient urinating without any difficulties and passing flatus. Morning labs reviewed and stable revealing mild leukocytosis with WBC count of 11.64, mild postoperative anemia with hemoglobin stable at 11.1, and mild hyponatremia sodium of 134. From a medical perspective, patient medically stable for discharge once cleared by primary admitting general surgeon. Vital signs reviewed and stable. General: Nontoxic, no distress and appears stated age. Morbidly obese. Derm: Skin warm and dry, normal coloration for ethnicity. Head: Atraumatic, normocephalic and symmetric. Eyes: EOMs intact, no lid lag, and anicteric sclera Mouth: no lip lesions, mucus membranes moist Cardiovascular: regular rate and rhythm with normal S1S2, no murmur, positive posterior tibial pulses bilaterally, and cap refill < 2 seconds. Lungs: Respirations even, regular, and unlabored on room air. Lungs CTA bilaterally, no rhonchi, no rales, no wheezing, and no accessory muscle usage. Abdominal: soft, nontender to palpation, no guarding, no appreciable organomegaly Ext: ROM intact. No gross muscle atrophy, no edema, no contractures Neuro: Speech clear, face symmetrical and CN II-XII grossly intact with no noted focal neuro deficits Psych: Alert and oriented to person, place, time, and situation. Appropriate and pleasant affect. Assessment and Plan of Care: Morbid obesity with BMI 53.7 kg/m Status post bariatric surgery with gastric sleeve -Management per primary admitting general surgery team. -DVT prophylaxis with Lovenox -Pain management and diet to be managed by primary admitting general surgery team. Hypertension -Monitor vital signs and continue daily medication regimen with amlodipine. Iron Deficiency anemia -Continue daily medication management ferrous sulfate 325 mg daily. Thank you for allowing us to participate in the care of this pleasant patient. Do not hesitate to contact us with questions. Someone can be reached from the [facility] hospitalist group all hours of the day at [phone] or via perfect serve. Paul Ambrocio NP rendered care for this patient independently, reviewed the findings and plan as documented in the note above. I did not physically speak with or examine the patient on this date. Objective - Vital Signs Vital signs: Vital Signs Temp 97.6 F 07/22/21 07:26 Pulse 81 07/22/21 07:26 Resp 19 07/22/21 07:26 BP 188/102 07/22/21 07:26 Pulse Ox 100 07/22/21 07:26 FiO2 21 07/21/21 21:01 Intake & Output 07/21/21 07/22/21 07/22/21 18:59 06:59 18:59 Intake Total 1100 2130 Output Total 5 1700 Balance 1095 430 Weight 141.9 kg Intake: IV 1100 Intake, IV Titration 2100 Amount ACETAMINOPHEN IV (For NPO 100 ) 1,000 mg In Empty Bag 1 bag @ 400 mls/hr IVPB Q6HR CORTEZ Rx#:[id number] Sodium Chloride 0.9% 2, 2000 000 ml @ 999 mls/hr IV . Q2H1M ONE Rx#:[id number] Oral 30 Output: Urine 1700 Stool 0 Estimated Blood Loss 5 Other: Voiding Method Toilet # Voids 1 1 - Labs CBC & Chem 7: 07/22/21 05:19 07/22/21 05:19 Labs: Abnormal Lab Results - Last 24 Hours (Table) 07/21/21 07/21/21 Range/Units 17:12 17:12 Iron 19 L (50-170) ug/dL % Saturation 4.65 L (12.00-45.00) Ferritin 297.0 H (10.0-291.0) ng/mL Vitamin D 25-Hydroxy 20.4 L (30.0-100.0) ng/mL
[2021-07-22 11:38] VITALS: BMI 53.6
== END 2021-07-22 14:35 | disposition home or self-care (01) | DRG 620 ==
LOC: 2ORMAIN 09:19 → 4SSUR 13:50
PROVIDERS: ADMIT Surgery Plastic and Reconstructive Surgery; ATTEND Surgery Plastic and Reconstructive Surgery
PROC: 0DNW4ZZ Release Peritoneum, Percutaneous Endoscopic Approach (ICD-10-PCS; 2021-07-21)
PROC: 0DJ08ZZ Inspection of Upper Intestinal Tract, Via Natural or Artificial Opening Endoscopic (ICD-10-PCS; 2021-07-21)
PROC: 8E0W4CZ Robotic Assisted Procedure of Trunk Region, Percutaneous Endoscopic Approach (ICD-10-PCS; 2021-07-21)
PROC: 0DB64Z3 Excision of Stomach, Percutaneous Endoscopic Approach, Vertical (ICD-10-PCS; principal; 2021-07-21 10:30)
DX: E66.01 Morbid (severe) obesity due to excess calories (principal); N25.81 Secondary hyperparathyroidism of renal origin; Z68.43 Body mass index [BMI] 50.0-59.9, adult; H40.9 Unspecified glaucoma; H54.8 Legal blindness, as defined in USA; F17.211 Nicotine dependence, cigarettes, in remission; I10 Essential (primary) hypertension; F41.9 Anxiety disorder, unspecified; M17.10 Unilateral primary osteoarthritis, unspecified knee; K66.0 Peritoneal adhesions (postprocedural) (postinfection); M19.079 Primary osteoarthritis, unspecified ankle and foot; E11.9 Type 2 diabetes mellitus without complications; E78.1 Pure hyperglyceridemia; E50.9 Vitamin A deficiency, unspecified; E55.9 Vitamin D deficiency, unspecified; R94.31 Abnormal electrocardiogram [ECG] [EKG]; G47.30 Sleep apnea, unspecified; D50.9 Iron deficiency anemia, unspecified; Z98.42 Cataract extraction status, left eye; Z98.41 Cataract extraction status, right eye
CPT/HCPCS: 74240; 80051; 81025; 82306; 82310; 82565; 82728; 83540; 83550; 83735; 84100; 84520; 84590; 85025; 86850; 86900; 86901; 88307; 94640; 94660; 94760; 94762

== ENCOUNTER → 2021-07-25 | Outpatient (CLI) | payer MEDICARE, OTHER ==
[2021-07-25 09:31] VITALS: BP 146/98; PULSE 66; TEMP 98; BMI 50.1
--- NOTE | 2021-07-25 10:29 | P.BASOAP ---
Subjective Progress Note Date: 07/25/21 Patient seen and evaluated. She is not taking her blood pressure medication. Alternatively blood pressure is the best its bend. She is lost 30 pounds. Mother is at bedside. Medications reviewed. Scopolamine patch discontinued. No infection. Resume blood pressure medications at home. Start protein shakes. Follow-up in 1 week. Continue omeprazole Objective - Vital Signs Vital signs: Vital Signs Temp 98 F 07/25/21 09:26 Pulse 66 07/25/21 09:26 Resp BP 146/98 07/25/21 09:26 Pulse Ox FiO2 Intake & Output 07/24/21 07/25/21 07/25/21 18:59 06:59 18:59 Weight 136.531 kg Assessment/Plan Plan: Date: 07/25/21 Initial Weight: 145.603 kg Initial BMI: 53.4 Current Weight: 136.531 kg Current BMI: 50.1 Type of Surgery: Total Volume in Band: Previous Volume: Volume Removed: Volume Added: Band Size:
--- NOTE | 2021-07-27 13:46 | P.PN ---
Progress Note - Text Progress Note Date: 07/27/21 The patient contacted via telephone. She reports she is doing well. She had questions of starting oatmeal today. Recommended protein shakes ideally. Otherwise doing well. All questions addressed.
== END | disposition home or self-care (01) ==
LOC: BARWHC3 08:54
PROVIDERS: ATTEND Surgery Plastic and Reconstructive Surgery
DX: E66.01 Morbid (severe) obesity due to excess calories (principal); Z68.43 Body mass index [BMI] 50.0-59.9, adult
CPT/HCPCS: 99211

== ENCOUNTER → 2021-07-30 | Outpatient (CLI) | payer MEDICARE, OTHER ==
[2021-07-30 16:14] VITALS: BP 125/77; PULSE 76; TEMP 98.3; BMI 50.1
--- NOTE | 2021-07-30 16:21 | P.BASOAP ---
Subjective Progress Note Date: 07/30/21 She reports change in taste after surgery. She has challenges with protein. Medications reviewed. New binder/ Objective - Vital Signs Vital signs: Vital Signs Temp 98.3 F 07/30/21 16:11 Pulse 76 07/30/21 16:11 Resp BP 125/77 07/30/21 16:11 Pulse Ox FiO2 Intake & Output 07/29/21 07/30/21 07/30/21 18:59 06:59 18:59 Weight 136.531 kg Assessment/Plan Plan: Date: 07/30/21 Initial Weight: 145.603 kg Initial BMI: 53.4 Current Weight: 136.531 kg Current BMI: 50.1 Type of Surgery: Total Volume in Band: Previous Volume: Volume Removed: Volume Added: Band Size:
== END | disposition home or self-care (01) ==
LOC: BARWHC3 15:54
PROVIDERS: ATTEND Surgery Plastic and Reconstructive Surgery
DX: E66.01 Morbid (severe) obesity due to excess calories (principal); Z68.43 Body mass index [BMI] 50.0-59.9, adult
CPT/HCPCS: 97802; G0463; 99211

== ENCOUNTER → 2021-09-04 | Outpatient (CLI) | payer MEDICARE, OTHER ==
[2021-09-04 11:46] LABS: Prothrombin Time 11.3 sec (9.0-12.0)
[2021-09-04 16:17] LABS: HCT 35.5 % (37.2-46.3); HGB 11.3 g/dL (12.0-15.0); MCH 27.7 pg (27.0-32.0); MCHC 31.8 g/dL (32.0-37.0); Mean Platelet Volume 12.2 fL (9.5-12.2); NRBC Per 100 WBC 0 /100 WBCS (0.0-0.0); Platelet Count 279 X 10*3/uL (140-440); RBC 4.08 X 10*6/uL (4.10-5.20); RDW 14.8 % (11.5-14.5); WBC 5.29 X 10*3/uL (4.50-10.00)
[2021-09-04 18:21] LABS: Chol/HDL Ratio 4.22 Ratio; LDL Cholesterol,Calculated 60.1 mg/dL (0.0-131.0)
[2021-09-04 18:24] LABS: % Iron Saturation 31.29 (12.00-45.00); ALT 39 U/L (8-44); AST 28 U/L (13-35); African American GFR (CKD) 74.2 (60.0-200.0); Albumin 4.3 g/dL (3.8-4.9); Albumin/Globulin Ratio 1.38 (1.60-3.17); Alkaline Phosphatase 58 U/L (41-126); BUN/Creat Ratio 6.68 Ratio (12.00-20.00); Blood Urea Nitrogen 7.8 mg/dL (9.0-27.0); Calcium 9.5 mg/dL (8.7-10.3); Carbon Dioxide 21.7 mmol/L (20.0-27.5); Chloride 103 mmol/L (96-109); Globulin 3.1 g/dL (1.6-3.3); Glucose 90 mg/dL (70-110); Iron 92 ug/dL (50-170); Magnesium 1.9 mg/dL (1.5-2.4); Phosphorus 3.2 mg/dL (2.4-5.1); Potassium 3.7 mmol/L (3.5-5.5); Sodium 141 mmol/L (135-145); Total Iron Binding Capacity 294 ug/dL (228-460); Total Protein 7.5 g/dL (6.2-8.2)
[2021-09-05 13:51] LABS: Zinc, Serum 92 ug/dL (60-130)
== END | disposition home or self-care (01) ==
LOC: LABWHC1 10:42
PROVIDERS: ATTEND Surgery Plastic and Reconstructive Surgery
DX: E66.01 Morbid (severe) obesity due to excess calories (principal); D50.8 Other iron deficiency anemias; D50.9 Iron deficiency anemia, unspecified; K91.2 Postsurgical malabsorption, not elsewhere classified; E44.0 Moderate protein-calorie malnutrition; E44.1 Mild protein-calorie malnutrition; E45 Retarded development following protein-calorie malnutrition; E46 Unspecified protein-calorie malnutrition; E55.9 Vitamin D deficiency, unspecified; K74.1 Hepatic sclerosis; N19 Unspecified kidney failure; T56.894A Toxic effect of other metals, undetermined, initial encounter; K50.90 Crohn's disease, unspecified, without complications
CPT/HCPCS: 36415; 80053; 80061; 82306; 82525; 82607; 82728; 82746; 83036; 83540; 83550; 83735; 83970; 84100; 84255; 84425; 84443; 84590; 84630; 85027; 85610; 85730

== ENCOUNTER → 2021-11-19 | Outpatient (CLI) | payer MEDICARE, OTHER ==
[2021-11-19 16:44] VITALS: BP 156/96; PULSE 80; TEMP 98.2; BMI 39.6
--- NOTE | 2021-11-19 16:56 | P.BASOAP ---
Subjective Progress Note Date: 11/19/21 She has lost almost 100 pounds in 4 months. She is working out 6 days per week. She wants to get down to 160 pounds. She is making sugar free foods. She sticks to her protein. She is doing well. She stays under 5 grams of sugar. She cannot tolerate premier shake. She is getting 80 grams. Objective - Vital Signs Vital signs: Vital Signs Temp 98.2 F 11/19/21 16:38 Pulse 80 11/19/21 16:38 Resp BP 156/96 11/19/21 16:38 Pulse Ox FiO2 Intake & Output 11/18/21 11/19/21 11/19/21 18:59 06:59 18:59 Weight 107.955 kg Assessment/Plan Plan: Date: 11/19/21 Initial Weight: 145.603 kg Initial BMI: 53.4 Current Weight: 107.955 kg Current BMI: 39.6 Type of Surgery: Total Volume in Band: Previous Volume: Volume Removed: Volume Added: Band Size:
== END | disposition home or self-care (01) ==
LOC: BARWHC3 15:41
PROVIDERS: ATTEND Surgery Plastic and Reconstructive Surgery
DX: E66.01 Morbid (severe) obesity due to excess calories (principal); Z71.3 Dietary counseling and surveillance
CPT/HCPCS: 97803; G0463; 99211

== ENCOUNTER → 2022-01-26 | Outpatient (CLI) | payer MEDICARE, OTHER ==
[2022-01-26 17:13] LABS: Partial Thromboplastin Time 27.1 sec (22.0-30.0); Prothrombin Time 10.8 sec (9.0-12.0)
[2022-01-26 23:57] LABS: HGB 11.4 g/dL (12.0-15.0); MCH 27.6 pg (27.0-32.0); MCHC 31.7 g/dL (32.0-37.0); MCV 87.2 fL (80.0-97.0); Mean Platelet Volume 10.6 fL (9.5-12.2); NRBC Per 100 WBC 0 /100 WBCS (0.0-0.0); Platelet Count 304 X 10*3/uL (140-440); RBC 4.13 X 10*6/uL (4.10-5.20); RDW 13.5 % (11.5-14.5); WBC 6.96 X 10*3/uL (4.50-10.00)
[2022-01-27 00:42] LABS: % Iron Saturation 18.03 (12.00-45.00); ALT 11 U/L (8-44); AST 12 U/L (13-35); African American GFR (CKD) 77.7 (60.0-200.0); Albumin 4.4 g/dL (3.8-4.9); Albumin/Globulin Ratio 1.55 (1.60-3.17); Alkaline Phosphatase 62 U/L (41-126); BUN/Creat Ratio 14.59 Ratio (12.00-20.00); Blood Urea Nitrogen 16.2 mg/dL (9.0-27.0); Calcium 9.4 mg/dL (8.7-10.3); Chloride 102 mmol/L (96-109); Globulin 2.8 g/dL (1.6-3.3); Glucose 88 mg/dL (70-110); Iron 57 ug/dL (50-170); Magnesium 2.2 mg/dL (1.5-2.4); Non-African American GFR(CKD) 67.1 (60.0-200.0); Phosphorus 3.7 mg/dL (2.4-5.1); Potassium 3.8 mmol/L (3.5-5.5); Sodium 139 mmol/L (135-145); Total Iron Binding Capacity 318 ug/dL (228-460); Total Protein 7.2 g/dL (6.2-8.2)
[2022-01-27 01:27] LABS: Chol/HDL Ratio 3.41 Ratio; LDL Cholesterol,Calculated 91.3 mg/dL (0.0-131.0); Prealbumin 21.6 mg/dL (18.0-42.0); VLDL Calculation 19.62 mg/dL (5.00-40.00)
== END | disposition home or self-care (01) ==
LOC: LABWHC1 16:14
PROVIDERS: ATTEND Surgery Plastic and Reconstructive Surgery
DX: E66.01 Morbid (severe) obesity due to excess calories (principal); E89.1 Postprocedural hypoinsulinemia; D50.8 Other iron deficiency anemias; E44.0 Moderate protein-calorie malnutrition; E45 Retarded development following protein-calorie malnutrition; E55.9 Vitamin D deficiency, unspecified; K74.1 Hepatic sclerosis; N19 Unspecified kidney failure; T59.894A Toxic effect of other specified gases, fumes and vapors, undetermined, initial encounter; K50.90 Crohn's disease, unspecified, without complications; K91.2 Postsurgical malabsorption, not elsewhere classified
CPT/HCPCS: 36415; 80053; 80061; 82306; 82525; 82607; 82728; 82746; 83036; 83540; 83550; 83735; 83970; 84100; 84134; 84255; 84425; 84443; 84590; 84630; 85027; 85610; 85730

== ENCOUNTER → 2022-01-28 | Outpatient (CLI) | payer MEDICARE, OTHER ==
--- NOTE | 2022-01-28 16:08 | P.BASOAP ---
Subjective Progress Note Date: 01/28/22 She has lost 100 pounds. Protein intake of 70 grams daily. She watches her carbs of 5 grams. She denies any headaches. NO sugar added. No rice, but does brown rice. No heartburn no abdominal pain. Assessment/Plan Plan: Date: Initial Weight: 145.603 kg Initial BMI: Current Weight: Current BMI: Type of Surgery: Total Volume in Band: Previous Volume: Volume Removed: Volume Added: Band Size:
[2022-01-28 16:15] VITALS: BP 163/92; PULSE 78; TEMP 97.7; BMI 37.8
== END ==
LOC: BARWHC3 15:55
PROVIDERS: ATTEND Surgery Plastic and Reconstructive Surgery
DX: Z71.3 Dietary counseling and surveillance (principal); E66.01 Morbid (severe) obesity due to excess calories; Z68.37 Body mass index [BMI] 37.0-37.9, adult; Z87.891 Personal history of nicotine dependence
CPT/HCPCS: 97803; G0463; 99211

== ENCOUNTER → 2022-06-24 | Outpatient (CLI) | payer BC, MEDICARE, OTHER ==
[2022-06-24 17:26] LABS: Partial Thromboplastin Time 25.1 sec (22.0-30.0); Prothrombin Time 10.1 sec (9.0-12.0)
[2022-06-25 01:16] LABS: HCT 34.9 % (37.2-46.3); HGB 11.6 g/dL (12.0-15.0); MCH 28.6 pg (27.0-32.0); MCHC 33.2 g/dL (32.0-37.0); Mean Platelet Volume 10.6 fL (9.5-12.2); NRBC Per 100 WBC 0 /100 WBCS (0.0-0.0); Platelet Count 255 X 10*3/uL (140-440); RBC 4.06 X 10*6/uL (4.10-5.20); RDW 13.6 % (11.5-14.5); WBC 5.16 X 10*3/uL (4.50-10.00)
[2022-06-25 03:21] LABS: % Iron Saturation 14.31 (12.00-45.00); ALT 13 U/L (8-44); AST 16 U/L (13-35); African American GFR (CKD) 88.2 (60.0-200.0); Albumin 4.3 g/dL (3.8-4.9); Albumin/Globulin Ratio 1.48 (1.60-3.17); Alkaline Phosphatase 59 U/L (41-126); Blood Urea Nitrogen 16.5 mg/dL (9.0-27.0); Calcium 9.4 mg/dL (8.7-10.3); Carbon Dioxide 25.5 mmol/L (20.0-27.5); Chloride 100 mmol/L (96-109); Chol/HDL Ratio 2.38 Ratio; Globulin 2.9 g/dL (1.6-3.3); Glucose 81 mg/dL (70-110); Iron 51 ug/dL (50-170); LDL Cholesterol,Calculated 60.7 mg/dL (0.0-131.0); Magnesium 2.2 mg/dL (1.5-2.4); Non-African American GFR(CKD) 76.1 (60.0-200.0); Phosphorus 3.2 mg/dL (2.4-5.1); Potassium 4.3 mmol/L (3.5-5.5); Sodium 131 mmol/L (135-145); Total Iron Binding Capacity 357 ug/dL (228-460); Total Protein 7.2 g/dL (6.2-8.2); VLDL Calculation 18.84 mg/dL (5.00-40.00)
[2022-06-25 11:11] LABS: Prealbumin 24.2 mg/dL (18.0-42.0)
[2022-06-25 13:02] LABS: Zinc, Serum 64 ug/dL (60-130)
[2022-06-26 11:50] LABS: Vitamin A 71 ug/dL (38-106)
== END | disposition home or self-care (01) ==
LOC: LABWHC1 15:46
PROVIDERS: ATTEND Surgery Plastic and Reconstructive Surgery
DX: E66.01 Morbid (severe) obesity due to excess calories (principal); D50.8 Other iron deficiency anemias; E44.0 Moderate protein-calorie malnutrition; E44.1 Mild protein-calorie malnutrition; E45 Retarded development following protein-calorie malnutrition; E55.9 Vitamin D deficiency, unspecified; K74.1 Hepatic sclerosis; N19 Unspecified kidney failure; T56.894A Toxic effect of other metals, undetermined, initial encounter; K50.90 Crohn's disease, unspecified, without complications
CPT/HCPCS: 36415; 80053; 80061; 82306; 82525; 82607; 82728; 82746; 83036; 83540; 83550; 83735; 83970; 84100; 84134; 84255; 84425; 84443; 84590; 84630; 85027; 85610; 85730

== ENCOUNTER → 2022-07-01 | Outpatient (CLI) | payer BC, MEDICARE, OTHER ==
[2022-07-01 16:47] VITALS: BMI 36.4
[2022-07-01 16:53] VITALS: BP 150/92; PULSE 78; TEMP 98.1
--- NOTE | 2022-07-01 17:17 | P.BASOAP ---
Subjective Progress Note Date: 07/01/22 She is 30 minutes a day. She drinks 120 oz. Only drinks water. She has mildly elevated. She reports no moderate back pain. She reports trouble with grooming. She has occassional itching from the skin. Recommend nystatin pwoerder. She was 333 pounds. No more snoring. Nystatin. Increase 80 g and 800 kcal Objective - Vital Signs Vital signs: Vital Signs Temp 98.1 F 07/01/22 16:43 Pulse 78 07/01/22 16:43 Resp BP 150/92 07/01/22 16:43 Pulse Ox FiO2 Intake & Output 06/30/22 07/01/22 07/01/22 18:59 06:59 18:59 Weight 99.337 kg Assessment/Plan Plan: Date: 07/01/22 Initial Weight: 145.603 kg Initial BMI: 53.4 Current Weight: 99.337 kg Current BMI: 36.4 Type of Surgery: Total Volume in Band: Previous Volume: Volume Removed: Volume Added: Band Size:
== END ==
LOC: BARWHC3 16:07
PROVIDERS: ATTEND Surgery Plastic and Reconstructive Surgery
DX: E66.01 Morbid (severe) obesity due to excess calories (principal); Z68.36 Body mass index [BMI] 36.0-36.9, adult; F17.200 Nicotine dependence, unspecified, uncomplicated
CPT/HCPCS: 97803; 99211

== ENCOUNTER → 2022-10-14 | Outpatient (CLI) | payer BC, MEDICARE, OTHER ==
[2022-10-14 16:10] VITALS: BP 154/92; PULSE 80; TEMP 98.9; BMI 37.0
--- NOTE | 2022-10-14 16:20 | P.BASOAP ---
Subjective Progress Note Date: 10/14/22 She is doing very well. She wants to lose skin removal. No abdominal pain. Has lower back pain. Grade 2 panniculs. She has difficulty grooming. Nystatin powder. FU in November Objective - Vital Signs Vital signs: Vital Signs Temp 98.9 F 10/14/22 16:07 Pulse 80 10/14/22 16:07 Resp BP 154/92 10/14/22 16:07 Pulse Ox FiO2 Intake & Output 10/13/22 10/14/22 10/14/22 18:59 06:59 18:59 Weight 101.151 kg Assessment/Plan Plan: Date: 10/14/22 Initial Weight: 145.603 kg Initial BMI: 53.4 Current Weight: 101.151 kg Current BMI: 37.0 Type of Surgery: Total Volume in Band: Previous Volume: Volume Removed: Volume Added: Band Size:
== END ==
LOC: BARWHC3 15:51
PROVIDERS: ATTEND Surgery Plastic and Reconstructive Surgery
DX: Z53.9 Procedure and treatment not carried out, unspecified reason (principal)
CPT/HCPCS: 99211

== ENCOUNTER → 2023-06-09 | Outpatient (CLI) | payer BC, MEDICARE, OTHER ==
--- NOTE | 2023-06-09 15:51 | P.BASOAP ---
Subjective Progress Note Date: 06/09/23 She went back to eat bread. She gained 14 pounds. Her family is eating. Recommend adjust diet. Increase protein and building muscle. Full lab check. Follow up 1 month. Weight gain of 14 pounds. Objective - Vital Signs Vital signs: Vital Signs Temp 98.0 F 06/09/23 15:26 Pulse 85 06/09/23 15:26 Resp BP 147/84 06/09/23 15:26 Pulse Ox FiO2 Intake & Output 06/08/23 06/09/23 06/09/23 18:59 06:59 18:59 Weight 107.774 kg Assessment/Plan Plan: Date: 06/09/23 Initial Weight: 145.603 kg Initial BMI: 53.4 Current Weight: 107.774 kg Current BMI: 39.5 Type of Surgery: Total Volume in Band: Previous Volume: Volume Removed: Volume Added: Band Size:
[2023-06-09 16:01] VITALS: BP 147/84; PULSE 85; TEMP 98; BMI 39.5
== END | disposition home or self-care (01) ==
LOC: BARWHC3 15:21
PROVIDERS: ATTEND Surgery Plastic and Reconstructive Surgery
DX: E66.01 Morbid (severe) obesity due to excess calories (principal); Z53.9 Procedure and treatment not carried out, unspecified reason
CPT/HCPCS: 99211

== ENCOUNTER → 2023-08-04 | Outpatient (CLI) | payer BC, MEDICARE, OTHER ==
[2023-08-04 16:40] VITALS: BP 168/99; PULSE 79; RESP 16; TEMP 99.4; BMI 39.7
--- NOTE | 2023-08-04 17:28 | P.BASOAP ---
Subjective Progress Note Date: 08/04/23 DATE OF SERVICE: 08/04/23 CHIEF COMPLAINT: Status post sleeve gastrectomy HISTORY OF PRESENT ILLNESS: Apple Roberts is a 32-year-old female who is status post sleeve gastrectomy, 07/21/2021. She is 2 years postop. She denies gastroesophageal reflux disease. She comes in with some weight gain. She is taking weight loss. At height of 5 feet 5 inches, her ideal body weight is 149 pounds. Her highest weight was 332 pounds, body mass index 55.4. She comes in 239 pounds from 238 pounds, 2 years ago. She has gained 1 pound in 2 years. Her body mass index is 39.8. Lifetime weight lost 93 pounds. Percent excess lifetime weight loss of 51 %. She is 90 pounds overweight. PHYSICAL EXAM: VITAL SIGNS: Height 5 foot 5 inches, weight 239 pounds. BMI 39.8 Vital Signs Temp 99.4 F 08/04/23 16:37 Pulse 79 08/04/23 16:37 Resp 16 08/04/23 16:37 BP 168/99 08/04/23 16:37 Pulse Ox FiO2 GENERAL: Well-developed in no acute distress. HEENT: No scleral icterus. Extraocular movements grossly intact. Hears conversational speech. No nasal drainage. NECK: Supple without lymphadenopathy. CHEST: Nonlabored respirations with equal bilateral excursions. CARDIOVASCULAR: Regular rate and regular rhythm. Distal 2+ pulses. ABDOMEN: Incisions intact. No hernia. MUSCULOSKELETAL: No clubbing, cyanosis. NEURO: No focal or lateralizing signs. Cranial nerves 2 through 12 grossly within normal limits. PSYCH: Appropriate affect. Alert and oriented to person, place and time. SKIN: Good skin turgor. Well perfused. LABS: Reviewed. ASSESSMENT: 1. Morbid obesity due to excess calories 2. Body mass index of 54.4 to 39.8 3. Hypertensive heart disease. 4. Glaucoma 5. Legally blind with retinal detachment 6. Anxiety 7. Osteoarthritis of the lower back 8. Osteoarthritis of the knee 9. Osteoarthritis of the feet 10. Iron deficiency anemia 11. Diabetes type II 12. Hypertriglyceridemia 13. Vitamin A deficiency 14. Vitamin D deficiency 15. Secondary hyperparathyroidism 16. Tobacco nicotine use. 17. Abnormal EKG 18. Status post sleeve gastrectomy 19. Vitamin B1 deficiency PLAN: 1. Recommend food diary journal with adjustments protein 80 grams daily 2. Recommend fluid intake 80 oz daily 3. Recommend carbohydrate intake 80 g daily. 4. Dietary plan reviewed. 5. Recommend targeted steps daily, about 5000 Objective - Vital Signs Vital signs: Vital Signs Temp 99.4 F 08/04/23 16:37 Pulse 79 08/04/23 16:37 Resp 16 08/04/23 16:37 BP 168/99 08/04/23 16:37 Pulse Ox FiO2 Intake & Output 08/03/23 08/04/23 08/04/23 18:59 06:59 18:59 Weight 108.409 kg Assessment/Plan Plan: Date: 08/04/23 Initial Weight: 145.603 kg Initial BMI: 53.4 Current Weight: 108.409 kg Current BMI: 39.7 Type of Surgery: Vertical Sleeve Gastrectomy Total Volume in Band: Previous Volume: Volume Removed: Volume Added: Band Size:
== END ==
LOC: BARWHC3 16:14
PROVIDERS: ATTEND Surgery Plastic and Reconstructive Surgery
DX: Z09 Encounter for follow-up examination after completed treatment for conditions other than malignant neoplasm (principal); E66.01 Morbid (severe) obesity due to excess calories; I11.9 Hypertensive heart disease without heart failure; H40.9 Unspecified glaucoma; H42 Glaucoma in diseases classified elsewhere; H54.8 Legal blindness, as defined in USA; H33.20 Serous retinal detachment, unspecified eye; F41.9 Anxiety disorder, unspecified; M47.816 Spondylosis without myelopathy or radiculopathy, lumbar region; M17.0 Bilateral primary osteoarthritis of knee; M19.079 Primary osteoarthritis, unspecified ankle and foot; D50.9 Iron deficiency anemia, unspecified; E11.9 Type 2 diabetes mellitus without complications; E78.1 Pure hyperglyceridemia; E50.9 Vitamin A deficiency, unspecified; E55.9 Vitamin D deficiency, unspecified; N25.81 Secondary hyperparathyroidism of renal origin; F17.200 Nicotine dependence, unspecified, uncomplicated; R94.31 Abnormal electrocardiogram [ECG] [EKG]; E51.9 Thiamine deficiency, unspecified; Z98.84 Bariatric surgery status; Z90.3 Acquired absence of stomach [part of]; Z68.39 Body mass index [BMI] 39.0-39.9, adult; Z79.899 Other long term (current) drug therapy
CPT/HCPCS: 99211

== ENCOUNTER → 2023-08-05 | Outpatient (CLI) | payer OTHER, BC, MEDICARE ==
[2023-08-05 09:04] LABS: Prothrombin Time 11.1 sec (10.0-12.5)
[2023-08-05 16:03] LABS: HCT 38.3 % (37.2-46.3); HGB 12.4 g/dL (12.0-15.0); MCH 28.2 pg (27.0-32.0); MCHC 32.4 g/dL (32.0-37.0); Mean Platelet Volume 11.1 FL (9.5-12.2); NRBC Per 100 WBC 0 X 10*3/uL (0.00-0.01); Platelet Count 253 X 10*3/uL (140-440); WBC 4.44 X 10*3/uL (4.50-10.00)
[2023-08-05 16:33] LABS: % Iron Saturation 21.91 (12.00-45.00); ALT 21 U/L (8-44); AST 18 U/L (13-35); Albumin 4.4 g/dL (3.8-4.9); Albumin/Globulin Ratio 1.47 Ratio (1.60-3.17); Alkaline Phosphatase 83 U/L (41-126); Blood Urea Nitrogen 15.4 mg/dL (9.0-27.0); Calcium 9.4 mg/dL (8.7-10.3); Carbon Dioxide 24.7 mmol/L (21.6-31.8); Chloride 102 mmol/L (96-109); Chol/HDL Ratio 2.64 Ratio; Glucose 113 mg/dL (70-110); Iron 78 UG/DL (50-170); LDL Cholesterol,Calculated 72.4 mg/dL (0.0-131.0); Magnesium 2.1 mg/dL (1.5-2.4); Phosphorus 4.2 mg/dL (2.4-5.1); Potassium 3.9 mmol/L (3.5-5.5); Sodium 139 mmol/L (135-145); Total Bilirubin 0.5 mg/dL (0.3-1.2); Total Iron Binding Capacity 356 UG/DL (228-460); Total Protein 7.4 g/dL (6.2-8.2); VLDL Calculation 17.74 mg/dL (5.00-40.00)
[2023-08-05 17:30] LABS: Prealbumin 24.9 mg/dL (18.0-42.0)
[2023-08-06 15:19] LABS: Zinc, Serum 81 ug/dL (60-130)
== END | disposition home or self-care (01) ==
LOC: LABWHC1 08:00
PROVIDERS: ATTEND Surgery Plastic and Reconstructive Surgery
DX: E66.01 Morbid (severe) obesity due to excess calories (principal); E89.1 Postprocedural hypoinsulinemia; D50.8 Other iron deficiency anemias; E44.0 Moderate protein-calorie malnutrition; E44.1 Mild protein-calorie malnutrition; E45 Retarded development following protein-calorie malnutrition; E55.9 Vitamin D deficiency, unspecified; K74.1 Hepatic sclerosis; N19 Unspecified kidney failure; K50.90 Crohn's disease, unspecified, without complications; K91.2 Postsurgical malabsorption, not elsewhere classified
CPT/HCPCS: 36415; 80053; 80061; 82306; 82525; 82607; 82728; 82746; 83036; 83540; 83550; 83735; 83970; 84100; 84134; 84255; 84425; 84443; 84590; 84630; 85027; 85610; 85730